=== PATIENT | female | born 1965 | race Caucasian/White ===

== ENCOUNTER 2023-11-26 15:56 | Inpatient (IN) | payer MEDICAID, SELFPAY ==
[2023-11-26] VITALS (20 sets, daily range): BP systolic 73–125; BP diastolic 56–91; PULSE 63–94; RESP 14–24; TEMP 35.9–36.2; O2SAT 93–100; BMI 23.4; BMI 23.7
--- NOTE | 2023-11-26 16:11 | EKG12_ITS ---
Test Reason : OD Blood Pressure : / mmHG Vent. Rate : 094 BPM Atrial Rate : 094 BPM P-R Int : 148 ms QRS Dur : 086 ms QT Int : 370 ms P-R-T Axes : 061 043 039 degrees QTc Int : 462 ms Normal sinus rhythm Normal ECG Confirmed by Tim Quinn ([id number]), videotape editor DIOGENES THOMAS ([id number]) on 11/28/2023 9:51:12 AM Referred By: Confirmed By:Tim Quinn
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
--- NOTE | 2023-11-26 16:15 | NURSING ---
NO OLD EKGS
--- NOTE | 2023-11-26 16:23 | ED.RN ---
Pt LOC deteriorating, SpO2 dropping to 87. MD to bedside, will intubate.
[2023-11-26 16:32] LABS: Absolute Lymphocyte Count 2.17 X10^3/uL (0.83-4.51); Absolute Neutrophil Count 1.9 X10^3/uL (2.0-7.7); Basophil# 0.08 X10^3/uL; Basophil% 1.7 % (0-1); Eosinophil# 0.11 X10^3/uL; Eosinophils% 2.3 % (0-5); Hematocrit 37.9 % (37-47); Hemoglobin 12.4 g/dL (12.0-15.0); Lymphocyte # 2.17 X10^3/ul (0.83-4.51); Lymphocyte % 45.8 % (19-41); Mean Corp Hgb Conc 32.7 g/dL (32-36); Mean Corpuscular Hgb 31.6 pg (27.0-32.0); Mean Corpuscular Volume 96.4 fL (81-99); Mean Platelet Vol. 9.2 fl (6.2-12.0); Monocyte# 0.45 X10^3/uL; Monocyte% 9.5 % (0-10); NRBC Flagged by Analyzer 0 % (0-5); Neutrophil # 1.92 X10^3/uL (2.7-7.7); Neutrophil % 40.5 % (47-70); Platelet Count 367 K/mm3 (150-450); RBC Distribution Width CV 13.3 % (11.6-14.6); RBC Distribution Width SD 47.6 fl (35.1-43.9); Red Blood Count 3.93 M/mm3 (4.2-5.4); White Blood Count 4.7 K/mm3 (4.4-11.0)
[2023-11-26] MEDS: Etomidate 20 MG/10 ML Vial 18 MG IV (16:34)
[2023-11-26] MEDS: Succinylcholine Chloride 200 MG/10 ML SYRINGE 60 MG IV (16:34)
[2023-11-26] MEDS: Dexmedetomidine 400 mcg in 0.9% NS 96 mL 7.7 MCG CONT INF (16:41)
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
--- NOTE | 2023-11-26 16:45 | RAD_ITS ---
INDICATION: overdose, ETT placement, OG tube placement EXAMINATION/TECHNIQUE: X-RAY - XR Chest 1 View COMPARISON: None. FINDINGS: The lungs are clear. The cardiomediastinal silhouette is unremarkable. NG tube is in place with tip at the GE junction. Endotracheal tube is in place with tip 1.6 cm above the torey. No pleural effusion or pneumothorax. No acute osseous abnormalities. RAD/Chest 1 View (Portable) IMPRESSION: NG tube is in place with tip at the GE junction. Recommend advancement by least 5 cm. Endotracheal tube is in place with tip 1.6 cm above the torey. Recommend retraction by at least 1 cm. No acute radiographic abnormalities. Electronically Signed: Aramis Farris MD at 17:31 EDT ,
[2023-11-26 17:02] LABS: Allen Test Positive; Base Excess 1 mmol/L (-2 to +2); Bicarbonate 26.5 mmol/L (22-26); Blood Gas Specimen Type ART; Mode AC; O2 Delivery Device Adult Vent; PEEP 5; PO2 234 mmHG (75-100); RR 14; SITE R Radial; SO2 100 % (95-99); Total Carbon Dioxide 28 mmol/L; pCO2 49.6 mmHg (35-45); pH 7.34 (7.35-7.45)
[2023-11-26 17:07] LABS: Acetaminophen (Tylenol) Level 32.2 ug/mL (10.0-30.0); Salicylate 3.1 mg/dL (2.8-20.0)
[2023-11-26 17:13] LABS: Anion Gap 7 (5-15); BUN 6 mg/dL (7-18); BUN/Creat Ratio 7.9 RATIO (10-20); Calcium,Total 8.3 mg/dL (8.5-10.1); Chloride 106 mmol/L (98-107); Creatinine, Serum 0.76 mg/dL (0.55-1.02); EST Glomerular Filtration Rate 83 mL/min (>60); Est Glom Filt Rate - Afr Amer 101 mL/min (>60); Estimated Creatinine Clearance 69.67 ml/min; Glucose 103 mg/dL (74-106); Potassium 3.2 mmol/L (3.5-5.1); Sodium Level 140 mmol/L (136-145)
[2023-11-26 17:13] LABS: Amphetamine Urine NEGATIVE (<1000 ng/mL); Barbiturate Urine NEGATIVE (< 200 ng/mL); Benzodiazepine Urine POSITIVE (< 200 ng/mL); Cocaine Urine NEGATIVE (< 300 ng/mL); Ecstacy Urine POSITIVE (< 500 ng/mL); Methadone Urine NEGATIVE (< 300 ng/mL); Opiates Urine POSITIVE (< 300 ng/mL); PCP Urine NEGATIVE (< 25 ng/mL); THC Urine POSITIVE (< 50 ng/mL); Vista UDS pH Range 5
[2023-11-26 17:25] LABS: AST(SGOT) 12 U/L (15-37); Alanine Aminotransfer ALT/SGPT 18 U/L (13-56); Albumin, Serum 3.4 g/dL (3.2-5.0); Alkaline Phosphatase 79 U/L (45-117); Bilirubin, Direct 0.08 mg/dL (0.00-0.30); Globulin 3.5 g/dL (2.2-4.2); Protein, Total 6.9 g/dL (6.4-8.2)
[2023-11-26] MEDS: 0.9% Normal Saline (1000mL) 1,000 ML 999 ML IV ×2 (17:29→17:31)
[2023-11-26 17:30] LABS: Lipase 181 U/L (13-75)
--- NOTE | 2023-11-26 17:51 | NURSING ---
ICU BARON DRUG OVERDOSE
[2023-11-26 17:53] LABS: Bacteria 0 SEEN /hpf (None Seen); Mucous, Urine 0 SEEN /hpf (<or=2+)
[2023-11-26 17:54] LABS: Color, Urine Yellow (Yellow); Glucose, Dipstick Normal (Normal); Ketone-Dipstick 5 mg/dl (Negative); Leukocyte Esterase-Dipstick 25 /ul (Negative); Nitrite-Dipstick Negative (Negative); Occult Blood-Urine 25 /ul (Negative); Protein-Dipstick 30 mg/dl (Negative); Specific Gravity, Urine 1.015 (1.002-1.030); Urine Bilirubin Dipstick Negative (Negative); Urine Clarity Clear (Clear); Urine Urobilinogen Normal (Normal)
[2023-11-26 18:01] LABS: Red Blood Cells-Urine 0-5 SEEN /hpf (0-5); Squamous Epithelial Cells - UA 0-5 SEEN /hpf (5-10); White Blood Cells 0-5 SEEN /hpf (0-5)
[2023-11-26] MEDS: fentaNYL 100 MCG/2 ML Ampul 50 MCG IV (18:01)
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
--- NOTE | 2023-11-26 19:38 | EKG12_ITS ---
Test Reason : Blood Pressure : / mmHG Vent. Rate : 065 BPM Atrial Rate : 065 BPM P-R Int : 170 ms QRS Dur : 096 ms QT Int : 460 ms P-R-T Axes : 066 073 063 degrees QTc Int : 478 ms Normal sinus rhythm Normal ECG When compared with ECG of 26-NOV-2023 16:45, MANUAL COMPARISON REQUIRED, DATA IS UNCONFIRMED Confirmed by SHERI MENON, IDALMIS ([id number]), editorial manager MARIA DEL ROSARIO RHODES ([id number]) on 12/05/2023 1:15:10 PM Referred By: TOD Confirmed By:ROSENDO WADE MD
[2023-11-26] MEDS: Morphine 2 MG/ML Syringe IV (19:48)
[2023-11-26] MEDS: Phenobarbital 32.4 MG Tablet 64.8 MG PO (19:49)
[2023-11-26] MEDS: 0.9% Saline Lock 10 ML Syringe IV (19:49)
[2023-11-26] MEDS: Lactated Ringers 1,000 ML 100 ML IV (19:50)
[2023-11-26] MEDS: LACTATED RINGERS 500 ML 999 ML IV (19:51)
--- NOTE | 2023-11-26 20:12 | RAD_ITS ---
INDICATION: Confirm ETT and NG tube repositioning EXAMINATION/TECHNIQUE: X-RAY - XR Chest 1 View COMPARISON: Chest x-ray November 26, 2023 at 4:41 PM FINDINGS: LINES/DEVICES: Unchanged, well-positioned endotracheal tube, roughly 3.5 cm and the torey. Interval advancement of enteric tube with the tube looped in the left upper quadrant. LUNGS: Symmetric normal lung volumes. No airspace opacity or abnormal interstitial pattern. No nodule or mass. No pleural effusion or pneumothorax. MEDIASTINUM AND CARDIOVASCULAR STRUCTURES: Normal size and contour of the cardiomediastinal silhouette. No evidence of pulmonary vascular congestion. BONES AND SOFT TISSUES: Incompletely visualized thoracolumbar posterior fusion hardware and T12 kyphoplasty. There is mild lateral curvature, convex right thoracic spine. RAD/Chest 1 View (Portable) IMPRESSION: 1. Enteric tube looped in the left upper quadrant. 2. Well-positioned endotracheal tube. 3. No acute cardiopulmonary disease. Electronically Signed: Tim Negrete DO at 21:11 EDT ,
[2023-11-26] MEDS: Pantoprazole Sodium 40 MG in 0.9% Normal Saline (100mL MB+) 100 ML 330 MG IV (20:16)
[2023-11-26] MEDS: Potassium Chloride 10mEq/100mL 10 MEQ/100 ML IV.SOLN. 100 MEQ IV BOLUS ×4 (20:48→23:35)
[2023-11-26 21:21] LABS: Troponin-I HS 4 pg/mL (3.0-54.0)
[2023-11-26 21:36] LABS: Lactic Acid 3.1 mmol/L (0.4-1.9)
[2023-11-26] MEDS: Dexmedetomidine 400 mcg in 0.9% NS 96 mL 18.6 MCG CONT INF (22:08)
[2023-11-26] MEDS: Chlorhexidine 15 ML PO (23:30)
[2023-11-27] VITALS (31 sets, daily range): BP systolic 82–163; BP diastolic 68–99; PULSE 61–114; RESP 14–28; TEMP 36.3–37.1; O2SAT 87–100; BMI 23.8
[2023-11-27] MEDS: Phenobarbital 32.4 MG Tablet 64.8 MG PO ×7 (01:00→22:52)
[2023-11-27 01:10] LABS: Reflex Lactate? Y
[2023-11-27] MEDS: Lactated Ringers 1,000 ML 100 ML IV ×2 (01:44→12:15)
[2023-11-27 02:54] LABS: Lactic Acid 1.4 mmol/L (0.4-1.9)
[2023-11-27] MEDS: Dexmedetomidine 400 mcg in 0.9% NS 96 mL 18.6 MCG CONT INF (03:05)
[2023-11-27] MEDS: CHLORHEXIDINE GLUC 2% CLOTH 1 EACH TOWELETTE TOPICAL (04:35)
[2023-11-27 05:09] LABS: Absolute Lymphocyte Count 1.92 X10^3/uL (0.83-4.51); Absolute Neutrophil Count 3.7 X10^3/uL (2.0-7.7); Basophil# 0.06 X10^3/uL; Eosinophil# 0.13 X10^3/uL; Eosinophils% 2.1 % (0-5); Hematocrit 34.1 % (37-47); Hemoglobin 11.5 g/dL (12.0-15.0); Lymphocyte # 1.92 X10^3/ul (0.83-4.51); Mean Corp Hgb Conc 33.7 g/dL (32-36); Mean Corpuscular Hgb 32.8 pg (27.0-32.0); Mean Corpuscular Volume 97.2 fL (81-99); Mean Platelet Vol. 9.4 fl (6.2-12.0); Monocyte% 6.5 % (0-10); NRBC Flagged by Analyzer 0 % (0-5); Neutrophil # 3.67 X10^3/uL (2.7-7.7); Neutrophil % 59.1 % (47-70); Platelet Count 271 K/mm3 (150-450); RBC Distribution Width CV 13.7 % (11.6-14.6); Red Blood Count 3.51 M/mm3 (4.2-5.4); White Blood Count 6.2 K/mm3 (4.4-11.0)
[2023-11-27 05:37] LABS: ALB/GLOB Ratio 0.9 RATIO (0.9-2.4); AST(SGOT) 7 U/L (15-37); Alanine Aminotransfer ALT/SGPT 16 U/L (13-56); Albumin, Serum 2.6 g/dL (3.2-5.0); Alkaline Phosphatase 69 U/L (45-117); Anion Gap 5 (5-15); BUN 6 mg/dL (7-18); BUN/Creat Ratio 9.2 RATIO (10-20); Bilirubin, Direct 0.14 mg/dL (0.00-0.30); Calcium,Total 7.7 mg/dL (8.5-10.1); Chloride 114 mmol/L (98-107); Creatinine, Serum 0.65 mg/dL (0.55-1.02); EST Glomerular Filtration Rate 100 mL/min (>60); Est Glom Filt Rate - Afr Amer 121 mL/min (>60); Estimated Creatinine Clearance 81.47 ml/min; Globulin 2.9 g/dL (2.2-4.2); Glucose 113 mg/dL (74-106); Magnesium 1.7 mg/dL (1.6-2.6); Phosphorus 2.1 mg/dL (2.5-4.9); Potassium 3.7 mmol/L (3.5-5.1); Protein, Total 5.5 g/dL (6.4-8.2); Sodium Level 142 mmol/L (136-145); Thyroid Stim Hormone (TSH) 3.37 uIU/mL (0.358-3.74)
[2023-11-27 05:44] LABS: Prothrombin Time (Protime)PT. 12.8 SECONDS (11.7-14.9)
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
[2023-11-27 07:27] LABS: Allen Test Positive; Base Excess -1 mmol/L (-2 to +2); Bicarbonate 23.4 mmol/L (22-26); Blood Gas Specimen Type ART; Mode AC; O2 Delivery Device Adult Vent; PEEP 5; PO2 84 mmHG (75-100); RR 14; SITE R Radial; SO2 97 % (95-99); Total Carbon Dioxide 24 mmol/L; pCO2 34.4 mmHg (35-45); pH 7.44 (7.35-7.45)
[2023-11-27] MEDS: Na Biphos/Potassium Phosphate PACKET 2 PACKET PO ×4 (07:57→20:34)
[2023-11-27] MEDS: Folic Acid 1 MG Tablet GT (08:01)
[2023-11-27] MEDS: Pantoprazole Sodium 40 MG in 0.9% Normal Saline (100mL MB+) 100 ML 330 MG IV (08:12)
--- NOTE | 2023-11-27 08:47 | PN.CC_ITS ---
Objective Data Objective Data Vital Signs: Vital Signs Last response Temperature 36.5 C L 11/27/23 05:00 Temperature Source Temporal 11/27/23 05:00 Pulse Rate 64 11/27/23 07:08 Pulse Strength Normal (2+) 11/26/23 21:08 Respiratory Rate 15 11/27/23 07:27 Respiratory Effort Mechanically Ventilated 11/27/23 06:00 Respiratory Depth Normal 11/27/23 06:00 Respiratory Pattern Normal 11/27/23 07:08 Blood Pressure 143/93 H 11/27/23 07:00 Blood Pressure Mean 109 11/27/23 07:00 Blood Pressure Source Monitor 11/27/23 07:00 Blood Pressure Position Semi-Fowlers 11/27/23 07:00 Blood Pressure Location Left Arm 11/27/23 07:00 Pulse Ox 95 11/27/23 07:08 Oxygen Delivery Method Mechanical Ventilator 11/27/23 07:08 Oxygen Flow Rate (L/min) 6 11/26/23 16:27 Fraction of Inspired Oxygen (FIO2) 35 11/27/23 07:08 I&O: I&O Last 24 Hours 11/26/23 11/26/23 11/27/23 11:59 23:59 11:59 Intake Total 3099.06 / 3117.66 1163.82 / 1163.82 Output Total 885 / 885 Balance 3099.06 / 2717.66 278.82 / 278.82 I&O: Total Stay 11/26/23 15:56 thru 11/27/23 08:00 Intake Total 4262.88 Output Total 885 Balance 3377.88 Current Meds Ordered / Administered: Current meds ordered / Administered Generic Name Dose Route Start Last Admin Trade Name Freq PRN Reason Stop Dose Admin Acetaminophen 650 mg 11/26/23 20:13 Acetaminophen 650 Mg/20 Ml Udc GT Q6H PRN PRN Pain 1-10 Or Fever >100.7 Chlorhexidine Gluconate 1 each 11/27/23 10:00 11/27/23 04:35 Chlorhexidine Gluc 2% Cloth 1 Each [place] TOPICAL 1 each DAILY BIBIANA Administration Chlorhexidine Gluconate 15 ml 11/27/23 10:00 11/26/23 23:30 Chlorhexidine 15 Ml PO 15 ml BID BIB[place]NA Administration Dicyclomine HCl 20 mg 11/26/23 20:13 Dicyclomine 10 Mg Capsule GT Q6H PRN PRN abdominal discomfort Folic Acid 1 mg 11/27/23 08:00 11/27/23 08:01 Folic Acid 1 Mg Tablet GT 1 mg BREAKFAST BIBIANA Administration Gabapentin 300 mg 11/26/23 20:13 Gabapentin 300 Mg Capsule GT Q8H PRN PRN moderate to severe anxiety Hydroxyzine Pamoate 50 mg 11/26/23 20:13 Hydroxyzine Alecia 25 Mg Capsule GT Q4H PRN PRN mild anxiety Dexmedetomidine HCl 400 mcg/ 100 mls @ 7.9 mls/hr 11/26/23 16:30 11/27/23 08:00 Sodium Chloride CONT INF 0 mcg/kg/hr .[id number] BIBIANA 0 mls/hr Titration Protocol 0.5 MCG/KG/HR Sodium Chloride 250 mls @ 15 mls/hr 11/26/23 18:56 IV .[id number] PRN Additional IVPB Infusion Sodium Chloride 250 mls @ 15 mls/hr 11/26/23 18:56 IV .[id number] PRN Saline Flush Lactated Ringer's 1,000 mls @ 100 mls/hr 11/26/23 19:45 11/27/23 01:44 IV 100 mls/hr .Q10H BIB[place]NA Administration Norepinephrine Bitartrate 8 mg 250 mls @ 9.375 mls/hr 11/26/23 19:40 11/27/23 01:45 / Sodium Chloride CONT INF Not Given .[id number] BIBIANA Protocol 5 MCG/MIN Ceftriaxone Sodium 1 gm in 50 mls @ 100 mls/hr 11/27/23 10:00 Rocephin IV Q24 BIB[place]NA Pantoprazole Sodium 80 mg/ 100 mls @ 10 mls/hr 11/27/23 08:05 Sodium Chloride CONT INF Q10H BIB[place]NA Loperamide HCl 2 mg 11/26/23 20:14 Loperamide 2 Mg Capsule GT Q4H PRN PRN Loose Stools Morphine Sulfate 2 - 4 mg 11/26/23 18:25 11/26/23 19:48 Morphine 2 Mg/Ml Syringe IV 2 mg Q3H PRN PRN Administration Pain Score 6-10 Morphine Sulfate 2 - 4 mg 11/26/23 19:01 Morphine 4 Mg/Ml Syringe IV Q3H PRN PRN Pain Score 6-10 Multivitamins/Minerals 1 tablet 11/28/23 08:00 Multivitamins,Ther W-Minerals Tablet PO BREAKFAST BIB[place]NA Ondansetron HCl 4 mg 11/26/23 18:25 Ondansetron 4 Mg/2 Ml Vial IV Q8H PRN PRN NAUSEA/VOMITING Ondansetron HCl 8 mg 11/26/23 20:14 Ondansetron 8 Mg Tablet GT Q8H PRN PRN NAUSEA Phenobarbital 97.2 mg 11/26/23 19:00 11/27/23 08:01 Phenobarbital 32.4 Mg Tablet PO 12/01/23 02:59 97.2 mg Q4H BIB[place]NA Administration Taper Potassium Phos/Sodium Phos 2 packet 11/27/23 10:00 11/27/23 07:57 Na Biphos/Potassium Phosphate Packet PO 11/27/23 22:01 2 packet 4X/DAY BIB[place]NA Administration Sodium Chloride 10 - 40 ml 11/26/23 18:56 11/26/23 19:49 0.9% Saline Lock 10 Ml Syringe IV 40 ml UD PRN Administration SALINE FLUSH Thiamine HCl 100 mg 11/27/23 08:00 Thiamine Hydrochloride 100 Mg Tablet GT DAILYCM BIB[place]NA Trazodone HCl 100 mg 11/26/23 18:25 Trazodone 100 Mg Tablet PO QHS PRN PRN INSOMNIA Lab / Micro Data 11/27/23 04:30 11/27/23 04:30 Labs: Laboratory Results - last 24 hr 11/26/23 16:10: WBC 4.7, RBC 3.93 L, Hgb 12.4, Hct 37.9, MCV 96.4, MCH 31.6, MCHC 32.7, RDW Std Deviation 47.6 H, RDW Coeff of Neil 13.3, Plt Count 367, MPV 9.2, Immature Gran % (Auto) 0.200, Neut % (Auto) 40.5 L, Lymph % (Auto) 45.8 H, [place] % (Auto) 9.5, Eos % (Auto) 2.3, Baso % (Auto) 1.7 H, Absolute Neuts (auto) 1.9 L, Absolute Lymphs (auto) 2.17, Nucleated RBC % 0, Sodium 140, Potassium 3.2 L, Chloride 106, Carbon Dioxide 27.0, Anion Gap 7, BUN 6 L, Creatinine 0.76, Est im Creat Clear Calc 69.67, Est GFR (MDRD) Af Amer 101, Est GFR (MDRD) Non-Af 83, BUN/Creatinine Ratio 7.9 L, Glucose 103, Calcium 8.3 L, Magnesium 2.0, Total Bilirubin 0.20, Direct Bilirubin 0.08, AST 12 L, ALT 18, Alkaline Phosphatase 79, Total Protein 6.9, Albumin 3.4, Globulin 3.5, Lipase 181 H, Salicylates 3.1, Acetaminophen 32.2 H, Ethyl Alcohol 198.0 11/26/23 16:42: Urine Opiates Screen POSITIVE H, Urine Methadone Screen NEGATIVE , Ur Barbiturates Screen NEGATIVE, Ur Phencyclidine Scrn NEGATIVE, Ur Amphetamines Screen NEGATIVE, MDMA (Ecstasy) Screen POSITIVE H, U Benzodiazepines Scrn POSITIVE H, Urine Cocaine Screen NEGATIVE, U Cannabinoids Screen POSITIVE H, Ur Drug Screen Comment 11/26/23 17:35: Urine Color Yellow, Urine Clarity Clear, Urine pH 6.0, Ur Specific [place] 1.015, Urine Protein 30 H, Urine Glucose (UA) Normal, Urine Ketones 5 H, Urine Occult Blood 25 H, Urine Nitrite Negative, Urine Bilirubin Negative, Urine Urobilinogen Normal, Ur Leukocyte Esterase 25 H, Urine RBC 0-5 SEEN, Urine WBC 0-5 SEEN, Ur Squamous Epith Cells 0-5 SEEN, Urine Bacteria 0 SEEN, Urine Mucus 0 SEEN 11/26/23 20:00: Lactic Acid 3.1 H* 11/26/23 20:50: Troponin I High Sens 4 11/27/23 01:55: Lactic Acid 1.4 11/27/23 04:30: WBC 6.2, RBC 3.51 L, Hgb 11.5 L, Hct 34.1 L, MCV 97.2, MCH 32.8 H, MCHC 33.7, RDW Std Deviation 49.0 H, RDW Coeff of Neil 13.7, Plt Count 271, MPV 9.4, Immature Gran % (Auto) 0.300, Neut % (Auto) 59.1, Lymph % (Auto) 31.0, [place] % (Auto) 6.5, Eos % (Auto) 2.1, Baso % (Auto) 1.0, Absolute Neuts (auto) 3.7, Absolute Lymphs (auto) 1.92, Nucleated RBC % 0, PT 12.8, INR 1.0, Sodium 142, Potassium 3.7, Chloride 114 H, Carbon Dioxide 23.0, Anion Gap 5, BUN 6 L, Creatinine 0.65, Estim Creat Clear Calc 81.47, Est GFR (MDRD) Af Amer 121, Est GFR (MDRD) Non-Af 100, BUN/Creatinine Ratio 9.2 L, Glucose 113 H, Calcium 7.7 L, Phosphorus 2.1 L, Magnesium 1.7, Total Bilirubin 0.40, Direct Bilirubin 0.14, AST 7 L, ALT 16, Alkaline Phosphatase 69, Total Protein 5.5 L, Albumin 2.6 L, Globulin 2.9, Albumin/Globulin Ratio 0.9, TSH 3.37 Micro: Microbiology 11/27/23 06:00 Nasal Secretion MRSA (PCR) - Final 11/27/23 08:05 Gastric Fluid/Contents Gastric Occult Blood - Final Occult Blood Positive ABG Data ABG results: ABG 11/26/23 11/27/23 16:57 07:23 Specimen Type ART ART Sample Site R Radial R Radial pH 7.34 L 7.44 Bicarbonate Actual 26.5 H 23.4 Total CO2 28 24 Base Excess 1 -1 O2 Saturation 100 H 97 O2 % 50.0 35.0 ABG pCO2 49.6 H 34.4 L ABG pO2 234 H 84 [place] Test Positive Positive Respiration Rate 14 14 O2 Delivery Device Adult Vent Adult Vent Vent Mode AC AC Tidal Volume 450.0 450.0 POC PEEP 5 5 Imaging Radiology Impression Chest X-Ray 11/26/23 16:45 IMPRESSION: NG tube is in place with tip at the GE junction. Recommend advancement by least 5 cm. Endotracheal tube is in place with tip 1.6 cm above the torey. Recommend retraction by at least 1 cm. No acute radiographic abnormalities. Electronically Signed: Aramis Farris MD at 17:31 EDT , Chest X-Ray 11/26/23 20:12 IMPRESSION: 1. Enteric tube looped in the left upper quadrant. 2. Well-positioned endotracheal tube. 3. No acute cardiopulmonary disease. Electronically Signed: Tim Negrete DO at 21:11 EDT , Assessment and Plan . Assessment and plan: Subjective: No acute events o/n. On SBT Physical Exam: Gen - NAD, well-developed, intubated HEENT - MMM. ETT in place Resp - CTAB. Mechanically ventilated CV - RRR. No m/g/r Abd - Soft, NT, ND Ext - No c/c/e. Skin - No rashes? Neuro - Drowsy but arousable, off sedation. Can follow some commands I have reviewed the pertinent vital sign, laboratory, and imaging data. ASSESSMENT: # Acute hypoxic respiratory failure - intubated 11/25 mainly for airway protection # Opiate overdose # Suicide attempt # Hypotension # Polysubstance abuse - EtOH elevated and UDS positive for MDMA, opiates, benzos, MJ # Coffee ground OG output - ?traumatic ETT/NGT placement PLAN: -Cont VC vent 450/14/5/30%. Follow ABG/CXR -Tolerating SBT so far this AM, hopeful for extubation -CIWA protocol. Started on phenobarbital taper per IM (would hold if excessive drowsiness) -Cont IVF -Obtain EKG, monitor telemetry -Thiamine/MVI -Follow CBC, monitor for worsening coffee grounds OP/bleeding. No melena thus far. PPI gtt. May need GI evaluation FEN/GI: NPO Proph DVT/GI: SCDs, PPI gtt Critical Care Time: 50 mins The entirety of this encounter was completed via telemedicine
[2023-11-27 09:56] LABS: Allen Test Positive; Base Excess -2 mmol/L (-2 to +2); Bicarbonate 23.6 mmol/L (22-26); Blood Gas Specimen Type ART; Mode PS; O2 Delivery Device Adult Vent; PEEP 5; PO2 91 mmHG (75-100); SITE R Radial; SO2 97 % (95-99); Total Carbon Dioxide 25 mmol/L; pCO2 39.7 mmHg (35-45); pH 7.38 (7.35-7.45)
[2023-11-27 10:24] LABS: Hepatitis B Surface Antibody Non-Reactive; Hepatitis B Surface Antigen Non-Reactive (Nonreactive); Hepatitis C Antibody Non-Reactive (Nonreactive)
[2023-11-27] MEDS: Ceftriaxone 1 GM/50 ML BAG IV (10:42)
[2023-11-27] MEDS: 0.9% Saline Lock 10 ML Syringe IV ×2 (10:42→15:28)
[2023-11-27] MEDS: Pantoprazole Sodium 80 MG in 0.9% Normal Saline (100mL Bag) 80 ML 10 MG CONT INF ×2 (10:44→18:56)
[2023-11-27 11:52] LABS: Syphilis Antibodies Non-reactive
[2023-11-27 11:56] LABS: HIV - WCH Preliminary Reactive (Nonreactive)
[2023-11-27 13:31] LABS: Hematocrit 35.2 % (37-47); Hemoglobin 11.7 g/dL (12.0-15.0); Mean Corp Hgb Conc 33.2 g/dL (32-36); Mean Corpuscular Hgb 32.6 pg (27.0-32.0); Mean Corpuscular Volume 98.1 fL (81-99); Mean Platelet Vol. 9.3 fl (6.2-12.0); Platelet Count 282 K/mm3 (150-450); RBC Distribution Width CV 13.7 % (11.6-14.6); RBC Distribution Width SD 49.8 fl (35.1-43.9); Red Blood Count 3.59 M/mm3 (4.2-5.4); White Blood Count 7.5 K/mm3 (4.4-11.0)
[2023-11-27] MEDS: Thiamine Hydrochloride 100 MG Tablet PO (16:21)
[2023-11-27] MEDS: Benzonatate 100 MG Capsule PO (18:57)
[2023-11-27 20:05] LABS: Hematocrit 36.5 % (37-47)
[2023-11-27] MEDS: Gabapentin 600 MG Tablet PO (20:33)
[2023-11-27] MEDS: buPROPion (XL) 300 MG TABLET.XL PO (20:33)
[2023-11-27] MEDS: DULoxetine Hcl 60 MG Capsule PO (20:33)
[2023-11-27] MEDS: DULoxetine Hcl 30 MG Capsule PO (20:33)
[2023-11-27] MEDS: hydrOXYzine PAM 25 MG Capsule 50 MG PO (20:34)
[2023-11-28] VITALS (14 sets, daily range): BP systolic 109–167; BP diastolic 60–103; PULSE 85–107; RESP 20–24; TEMP 36.3–36.8; O2SAT 90–99; BMI 23.1
[2023-11-28] MEDS: Phenobarbital 32.4 MG Tablet 64.8 MG PO ×5 (03:40→18:06)
[2023-11-28 03:57] LABS: Absolute Lymphocyte Count 2.25 X10^3/uL (0.83-4.51); Absolute Neutrophil Count 4.5 X10^3/uL (2.0-7.7); Basophil# 0.06 X10^3/uL; Basophil% 0.8 % (0-1); Eosinophil# 0.22 X10^3/uL; Eosinophils% 2.8 % (0-5); Hemoglobin 11.9 g/dL (12.0-15.0); Lymphocyte # 2.25 X10^3/ul (0.83-4.51); Lymphocyte % 28.5 % (19-41); Mean Corp Hgb Conc 32.2 g/dL (32-36); Mean Corpuscular Hgb 31.4 pg (27.0-32.0); Mean Corpuscular Volume 97.6 fL (81-99); Mean Platelet Vol. 9.4 fl (6.2-12.0); Monocyte# 0.84 X10^3/uL; Monocyte% 10.6 % (0-10); NRBC Flagged by Analyzer 0 % (0-5); Neutrophil # 4.49 X10^3/uL (2.7-7.7); Neutrophil % 56.9 % (47-70); Platelet Count 317 K/mm3 (150-450); RBC Distribution Width CV 13.6 % (11.6-14.6); RBC Distribution Width SD 48.5 fl (35.1-43.9); Red Blood Count 3.79 M/mm3 (4.2-5.4); White Blood Count 7.9 K/mm3 (4.4-11.0)
[2023-11-28 04:23] LABS: ALB/GLOB Ratio 0.9 RATIO (0.9-2.4); AST(SGOT) 12 U/L (15-37); Alanine Aminotransfer ALT/SGPT 14 U/L (13-56); Albumin, Serum 2.7 g/dL (3.2-5.0); Alkaline Phosphatase 83 U/L (45-117); Anion Gap 6 (5-15); BUN 6 mg/dL (7-18); BUN/Creat Ratio 7.2 RATIO (10-20); Chloride 108 mmol/L (98-107); Creatinine, Serum 0.84 mg/dL (0.55-1.02); EST Glomerular Filtration Rate 74 mL/min (>60); Est Glom Filt Rate - Afr Amer 90 mL/min (>60); Estimated Creatinine Clearance 63.04 ml/min; Globulin 3.1 g/dL (2.2-4.2); Glucose 87 mg/dL (74-106); Magnesium 1.8 mg/dL (1.6-2.6); Phosphorus 5.4 mg/dL (2.5-4.9); Potassium 3.4 mmol/L (3.5-5.1); Protein, Total 5.8 g/dL (6.4-8.2); Sodium Level 143 mmol/L (136-145)
[2023-11-28] MEDS: Pantoprazole Sodium 80 MG in 0.9% Normal Saline (100mL Bag) 80 ML 10 MG CONT INF (04:56)
[2023-11-28] MEDS: Gabapentin 600 MG Tablet PO ×2 (06:11→14:21)
--- NOTE | 2023-11-28 07:31 | PCM.PN.INT ---
Assessment & Plan Assessment/Plan (1) Drug overdose, intentional: PLAN: Plan RECOMMENDATIONS: 1. Continue phenobarbital taper. 2. Thiamine and folic acid as ordered. 3. Continue nicotine replacement therapy. 4. Encourage incentive spirometer use and mobilize patient as tolerated. 5. The patient is medically stable for transfer out of the intensive care unit. Will sign off at this time. Call with any additional questions. IMPRESSIONS: 1. Acute hypoxemic respiratory failure in the setting of intentional overdose The patient was apparently intubated for airway protection in the setting of her presenting intentional overdose. With supportive care, the patient was able to be successfully extubated and is maintaining appropriate oxygen saturations on room air. She has no further pulmonary sequelae. Recommend encouraging incentive spirometer use while in bed. 2. Intentional overdose/suicide attempt/history of polysubstance abuse Continue current supportive care including phenobarbital taper, thiamine and folic acid. The patient will require psychiatry evaluation. She is medically stable for transfer out of the intensive care unit from my perspective. This note was generated with [employer] dictation software. It may contain incorrect words, spelling, and punctuation that were not noted in checking the note before signing. Subjective Subjective The patient was seen and examined at the bedside this morning. Events from the last 24 hours have been reviewed. The patient is currently afebrile, hemodynamically stable and maintaining appropriate oxygen saturations on room air. No overnight issues were identified by the nursing staff. The patient has no specific complaints this morning. Objective Data Objective Data The patient's most recent lab work, culture data and imaging studies have all been personally reviewed. Vital Signs: Vital Signs Temp Pulse Resp BP Pulse Ox O2 Del Method O2 Flow Rate 97.8 F 88 21 H 167/85 H 95 Room Air 2 11/28/23 06:00 11/28/23 07:00 11/28/23 07:00 11/28/23 07:00 11/28/23 07:00 11/28/23 07:00 11/27/23 16:00 FiO2 35 11/27/23 09:00 Oxygen Flow Rate (L/min) 2 Oxygen Delivery Method Room Air Weight: 135 lb 5.821 oz Body Mass Index (BMI) 23.1 Intake & Output: Intake and Output for Last 24 Hours 11/26/23 11/27/23 11/28/23 23:59 23:59 23:59 Intake Total 3099.06 / 3117.66 3184.82 / 3234.82 899.33 / 899.33 Output Total 3175 / 3425 850 / 850 Balance 3099.06 / 2717.66 9.82 / -190.18 49.33 / 49.33 Lab / Micro Data Attestation: I reviewed the patient's lab results. 11/28/23 03:45 11/28/23 03:45 Labs: Laboratory Results - last 24 hr 11/27/23 07:55: Syphilis Total Ab Non-reactive, Hep Bs Antigen Non-Reactive, Hep Bs Antibody Non-Reactive, Hepatitis C Antibody Non-Reactive, HIV 1&2 Antibody Preliminary Reactive H 11/27/23 13:15: WBC 7.5, RBC 3.59 L, Hgb 11.7 L, Hct 35.2 L, MCV 98.1, MCH 32.6 H, MCHC 33.2, RDW Std Deviation 49.8 H, RDW Coeff of Neil 13.7, Plt Count 282, MPV 9.3 11/27/23 19:52: Hgb 12.0, Hct 36.5 L 11/28/23 03:45: WBC 7.9, RBC 3.79 L, Hgb 11.9 L, Hct 37.0, MCV 97.6, MCH 31.4, MCHC 32.2, RDW Std Deviation 48.5 H, RDW Coeff of Neil 13.6, Plt Count 317, MPV 9.4, Immature Gran % (Auto) 0.400, Neut % (Auto) 56.9, Lymph % (Auto) 28.5, [place] % (Auto) 10.6 H, Eos % (Auto) 2.8, Baso % (Auto) 0.8, Absolute Neuts (auto) 4.5, Absolute Lymphs (auto) 2.25, Nucleated RBC % 0, Sodium 143, Potassium 3.4 L, Chloride 108 H, Carbon Dioxide 29.0, Anion Gap 6, BUN 6 L, Creatinine 0.84, Estim Creat Clear Calc 63.04, Est GFR (MDRD) Af Amer 90, Est GFR (MDRD) Non-Af 74, BUN/Creatinine Ratio 7.2 L, Glucose 87, Calcium 8.0 L, Phosphorus 5.4 H, Magnesium 1.8, Total Bilirubin 0.40, AST 12 L, ALT 14, Alkaline Phosphatase 83, Total Protein 5.8 L, Albumin 2.7 L, Globulin 3.1, Albumin/Globulin Ratio 0.9 Micro: Microbiology 11/26/23 16:45 Sputum, Induced/Lukens Gram Stain - Final 11/26/23 16:45 Sputum, Induced/Lukens Respiratory Culture - Preliminary Appears to be normal respiratory bassam. Further studies to follow. 11/27/23 06:00 Nasal Secretion MRSA (PCR) - Final 11/27/23 08:05 Gastric Fluid/Contents Gastric Occult Blood - Final Occult Blood Positive ABG Data ABG results: ABG 11/27/23 09:51 Specimen Type ART Sample Site R Radial pH 7.38 Bicarbonate Actual 23.6 Total CO2 25 Base Excess -2 O2 Saturation 97 O2 % 30.0 ABG pCO2 39.7 ABG pO2 91 [place] Test Positive O2 Delivery Device Adult Vent Vent Mode PS POC PEEP 5 Physical Exam Const alert and no apparent distress Constitutional Narrative: Sitter is present at the bedside. General Appearance: cooperative HEENT normocephalic and head/scalp atraumatic Eyes PERRL and EOMs intact bilaterally Neck supple General: trachea midline Chest inspection of chest normal Resp normal respiratory effort Auscultation: Negative for rales, rhonchi or wheezes Cardio regular rate and regular rhythm GI normal to inspection, nondistended, normoactive bowel sounds Extremity no clubbing, cyanosis or edema Skin no rashes or lesions noted Neuro CN's II-XII intact bilaterally and no focal motor deficits Psych cooperative Charges/Coding Visit Charges Inpatient E&M: 17529 Subs Hosp L2
[2023-11-28] MEDS: Multivitamins,Ther W-Minerals Tablet 1 TABLET PO (09:52)
[2023-11-28] MEDS: Acyclovir 200 MG Capsule 400 MG PO (09:52)
[2023-11-28] MEDS: Thiamine Hydrochloride 100 MG Tablet PO (09:53)
[2023-11-28] MEDS: Folic Acid 1 MG Tablet PO (09:54)
[2023-11-28] MEDS: DULoxetine Hcl 30 MG Capsule PO (09:59)
[2023-11-28] MEDS: 0.9% Saline Lock 10 ML Syringe IV (09:59)
[2023-11-28] MEDS: hydrOXYzine PAM 25 MG Capsule 50 MG PO (09:59)
[2023-11-28] MEDS: Ceftriaxone 1 GM/50 ML BAG IV (09:59)
[2023-11-28] MEDS: buPROPion (XL) 300 MG TABLET.XL PO (10:15)
[2023-11-28] MEDS: DULoxetine Hcl 60 MG Capsule PO (10:16)
--- NOTE | 2023-11-28 10:37 | PN.HOSP_ITS ---
Reason for Visit Reason for Visit: Diagnoses Poisoning by unspecified drugs, medicaments and biological substances, intentio nal self-harm, initial encounter (11/26/23) Objective Data Objective Data Vital Signs: Vital Signs Temp Pulse Resp BP Pulse Ox O2 Del Method O2 Flow Rate 97.8 F 87 24 H 118/103 H 96 Room Air 2 11/28/23 06:00 11/28/23 09:00 11/28/23 09:00 11/28/23 09:00 11/28/23 09:00 11/28/23 09:00 11/27/23 16:00 FiO2 35 11/27/23 09:00 Oxygen Flow Rate (L/min) 2 Oxygen Delivery Method Room Air Weight: 135 lb 5.821 oz Body Mass Index (BMI) 23.1 Intake & Output: Intake and Output for Last 24 Hours 11/26/23 11/27/23 11/28/23 23:59 23:59 23:59 Intake Total 3099.06 / 3117.66 3184.82 / 3234.82 982.83 / 982.83 Output Total 3175 / 3425 850 / 850 Balance 3099.06 / 2717.66 9.82 / -190.18 132.83 / 132.83 Lab / Micro Data 11/28/23 03:45 11/28/23 03:45 Labs: Laboratory Results - last 24 hr 11/27/23 07:55: Syphilis Total Ab Non-reactive, HIV 1&2 Antibody Preliminary Reactive H 11/27/23 13:15: WBC 7.5, RBC 3.59 L, Hgb 11.7 L, Hct 35.2 L, MCV 98.1, MCH 32.6 H, MCHC 33.2, RDW Std Deviation 49.8 H, RDW Coeff of Neil 13.7, Plt Count 282, MPV 9.3 11/27/23 19:52: Hgb 12.0, Hct 36.5 L 11/28/23 03:45: WBC 7.9, RBC 3.79 L, Hgb 11.9 L, Hct 37.0, MCV 97.6, MCH 31.4, MCHC 32.2, RDW Std Deviation 48.5 H, RDW Coeff of Neil 13.6, Plt Count 317, MPV 9.4, Immature Gran % (Auto) 0.400, Neut % (Auto) 56.9, Lymph % (Auto) 28.5, [place] % (Auto) 10.6 H, Eos % (Auto) 2.8, Baso % (Auto) 0.8, Absolute Neuts (auto) 4.5, Absolute Lymphs (auto) 2.25, Nucleated RBC % 0, Sodium 143, Potassium 3.4 L, Chloride 108 H, Carbon Dioxide 29.0, Anion Gap 6, BUN 6 L, Creatinine 0.84, Estim Creat Clear Calc 63.04, Est GFR (MDRD) Af Amer 90, Est GFR (MDRD) Non-Af 74, BUN/Creatinine Ratio 7.2 L, Glucose 87, Calcium 8.0 L, Phosphorus 5.4 H, Magnesium 1.8, Total Bilirubin 0.40, AST 12 L, ALT 14, Alkaline Phosphatase 83, Total Protein 5.8 L, Albumin 2.7 L, Globulin 3.1, Albumin/Globulin Ratio 0.9 Micro: Microbiology 11/26/23 16:45 Sputum, Induced/Lukens Gram Stain - Final 11/26/23 16:45 Sputum, Induced/Lukens Respiratory Culture - Final 11/27/23 06:00 Nasal Secretion MRSA (PCR) - Final 11/27/23 08:05 Gastric Fluid/Contents Gastric Occult Blood - Final Occult Blood Positive Physical Exam Narrative Seen and examined. Patient was extubated on 11/26. She is awake and responding to questions appropriately. Mild sore throat. Had a small BM. Has sitter near the bedside General: Alert, Oriented x3, Cooperative HEENT: Atraumatic, PERRLA, EOMI, Normocephalic Oral: No Gingival or Mucosal Lesions/ Ulcerations Neck: Supple, No JVD, Negative Carotid Bruits Chest wall/Lungs: Air entry diminished in bilateral lung bases. No crepitation/rhonchi Cardiovascular: Regular rate, Regular Rhythm, Normal S1, Normal S2, No M/G/R Abdomen: Bowel Sounds Present, Soft, Non Tender, Non-Distended : No dysuria. No renal angle tenderness. No suprapubic tenderness. Extremities: No edema, Capillary Refill Less than 3 Seconds Skin: No rashes, No breakdown Musculoskeletal: No Tenderness to Palpation of Joints or Extremities Neurological: Cranial nerves II-XII grossly intact, DTR 2+/4. No acute focal neurological deficit. Psych/Mental Status: Sad, getting tearful easily. Anxiety and depression Assessment & Plan Assessment/Plan (1) Drug overdose, intentional: PLAN: Plan This is 50-year-old female was brought to the ED for concerns regarding drug overdose for suicidal intent/attempt. She had Percocet tablets and at the time of presentation was in altered mentation, confused and disoriented and required intubation for airway protection. #1. Acute hypoxic respiratory failure with inability to maintain protecting airway secondary to opiate/Xanax overdose with suicide attempt and associated hypotension: Admitted to the ICU, intubated for airway protection, on Precedex. Later on patient extubated yesterday on 11/26. Complain of mild hoarseness of voice. #2. Chronic mild normocytic anemia hemoglobin around 12 g. Currently fluctuating 11.5-9.9. No significant drop. No acute anemia #3. Electrolyte disturbances with hypocalcemia, hypophosphatemia, lower normal range of magnesium: Calcium 7.7, phosphorus 2.1, magnesium 1.7, 11/27: Electrolyte monitoring and replacement accordingly. K3.4. Magnesium normal. #4. Anxiety and depression, drug overdose with suicidal intent/history of polysubstance abuse: urine drug screen positive for MDMA, opiates, benzos, marijuana. customer business manager consulted. Crisis management to evaluate the patient. #5. Acute EtOH intoxication with impending withdrawal: At admission her alcohol level was 198. High likelihood to go to alcohol withdrawal. Patient is being admitted to [facility] floor. Patient on phenobarbital based order set along with other adjunctive medications gabapentin, Bentyl, Vistaril, clonidine, Klonopin as needed for alcohol withdrawal symptom control. Patient is on thiamine and folate acid. CIWA monitor. customer business manager consulted.. #6. Anxiety and depression/mood disorder with suicide attempt as noted: Patient is still tearful. #7. Tobacco Abuse: Encouraged cessation, #8. DVT prophylaxis: SCDs. Charges/Coding Visit Charges Inpatient E&M: 58408 Subs Hosp L2
--- NOTE | 2023-11-28 16:31 | DS.PCM_ITS ---
Providers Date of Admission: 11/26/23 Date of Discharge: 11/28/23 Primary Care Physician: Luz Primary Care Phys Consultations 11/26/23 18:30 Consult: Industrial [employer] Supervisor / Pulmonary Medicine Routine Consulting Provider: Intensivists/Pulmonary Med Reason for Consult: Drug overdose, mechanically ventilated EMERGENT Consult: No MD Notified: Yes Date Notified: 11/26/23 Time Notified: 18:30 Method of Notification: Text Reason For Visit: DRUG OVERDOSE Diagnosis Discharge Diagnosis (1) Drug overdose, intentional: Status: Acute Code(s): T50.902A - Poisoning by unspecified drugs, medicaments and biological substances, intentional self-harm, initial encounter Plan This is 50-year-old female was brought to the ED for concerns regarding drug overdose for suicidal intent/attempt. She had Percocet tablets and at the time of presentation was in altered mentation, confused and disoriented and required intubation for airway protection. #1. Acute hypoxic respiratory failure with inability to maintain protecting airway secondary to opiate/Xanax overdose with suicide attempt and associated hypotension: Admitted to the ICU, intubated for airway protection, on Precedex. Later on patient extubated yesterday on 11/26. 11/27: Patient is doing well. Mild hoarseness of voice #2. Chronic mild normocytic anemia hemoglobin around 12 g. Currently fluctuating 11.5-9.9. No significant drop. No acute anemia #3. Electrolyte disturbances with hypocalcemia, hypophosphatemia, lower normal range of magnesium: Calcium 7.7, phosphorus 2.1, magnesium 1.7, 11/27: Electrolyte monitoring and replacement accordingly. K3.4. Magnesium normal. #4. Anxiety and depression, drug overdose with suicidal intent/history of polysubstance abuse: urine drug screen positive for MDMA, opiates, benzos, marijuana. manager transportation consulted. Crisis management to evaluate the patient. 11/27: [place] paper signed and slipped. History of suicidal intent and attempt. Past history of suicidal attempt. Severe anxiety and depression. #5. Acute EtOH intoxication with impending withdrawal: At admission her alcohol level was 198. High likelihood to go to alcohol withdrawal. Patient is being admitted to [facility] floor. Patient on phenobarbital based order set along with other adjunctive medications gabapentin, Bentyl, Vistaril, clonidine, Klonopin as needed for alcohol withdrawal symptom control. Patient is on thiamine and folate acid. [facility] monitor. manager transportation consulted.. #6. Anxiety and depression/mood disorder with suicide attempt as noted: Patient is still tearful. #7. Tobacco Abuse: Encouraged cessation, #8. DVT prophylaxis: SCDs. Patient was pink slipped. Suzanne was signed. [facility], being transferred under the care of Dr. Esqueda. Discharged Medications at Discharge Home Medications alprazolam 1 mg tablet 1 mg PO BID anxiety 11/27/23 bupropion HCl 300 mg 24 hr tablet, extended release 300 mg PO DAILY depression 11/27/23 calcium carbonate 500 mg-vitamin D3 5 mcg (200 unit) tablet (Oysco 500/D) 1 tab PO DAILY bone health 11/27/23 diclofenac sodium 75 mg tablet,delayed release 75 mg PO BID arthritis 11/27/23 duloxetine 30 mg capsule,delayed release 30 mg PO DAILY depression 11/27/23 duloxetine 60 mg capsule,delayed release 60 mg PO DAILY depression 11/27/23 ergocalciferol (vitamin D2) 1,250 mcg (50,000 unit) capsule 1,250 mcg PO QWEEK general health 11/27/23 gabapentin 600 mg tablet 600 mg PO TID chronic pain 11/27/23 valacyclovir 500 mg tablet 500 mg PO DAILY viral infection 11/27/23 Weight / BMI Weight Weight: 135 lb 5.821 oz Body Mass Index (BMI) 23.1 ABG / Lab / Microbiology Data 11/28/23 03:45 11/28/23 03:45 Laboratory: Laboratory Results - last 24 hr 11/27/23 19:52: Hgb 12.0, Hct 36.5 L 11/28/23 03:45: WBC 7.9, RBC 3.79 L, Hgb 11.9 L, Hct 37.0, MCV 97.6, MCH 31.4, MCHC 32.2, RDW Std Deviation 48.5 H, RDW Coeff of Neil 13.6, Plt Count 317, MPV 9.4, Immature Gran % (Auto) 0.400, Neut % (Auto) 56.9, Lymph % (Auto) 28.5, [place] % (Auto) 10.6 H, Eos % (Auto) 2.8, Baso % (Auto) 0.8, Absolute Neuts (auto) 4.5, Absolute Lymphs (auto) 2.25, Nucleated RBC % 0, Sodium 143, Potassium 3.4 L, C hloride 108 H, Carbon Dioxide 29.0, Anion Gap 6, BUN 6 L, Creatinine 0.84, Estim Creat Clear Calc 63.04, Est GFR (MDRD) Af Amer 90, Est GFR (MDRD) Non-Af 74, BUN/Creatinine Ratio 7.2 L, Glucose 87, Calcium 8.0 L, Phosphorus 5.4 H, Magnesium 1.8, Total Bilirubin 0.40, AST 12 L, ALT 14, Alkaline Phosphatase 83, Total Protein 5.8 L, Albumin 2.7 L, Globulin 3.1, Albumin/Globulin Ratio 0.9 Microbiology: Microbiology 11/26/23 16:45 Sputum, Induced/Lukens Gram Stain - Final 11/26/23 16:45 Sputum, Induced/Lukens Respiratory Culture - Final 11/27/23 06:00 Nasal Secretion MRSA (PCR) - Final 11/27/23 08:05 Gastric Fluid/Contents Gastric Occult Blood - Final Occult Blood Positive Meaningful Use Info Meaningful Use Meaningful Use Diagnoses (Choose all that apply): None applicable Ischemic Stroke Statin Dosing Therapy Reference: STATIN DOSE THERAPY REFERENCE: * Patients > 75 years receive moderate or high dose statin therapy. * Patients 75 years or YOUNGER should receive HIGH intensity statin dose unless contraindicated. You will be required to document reason for non-treatment if statin daily dose does not meet guidelines. HIGH DOSE STATIN THERAPY DAILY Atorvastatin > than or = to 40 mg Rosuvastatin > than or = to 20 mg Amlodipine + Atorvastatin > than or = to 2.5/40 mg Ezetimibe + Simvastatin 10/80 mg Simvastatin 80mg Discharge Plan Admission Admit Date/Time: 11/26/23 17:37 Attending Provider: Amilcar Rasheed Primary Care Provider: Care Physician,No Primary Consulting Providers: Raoul Kathleen; Kathy Mcmanus Discharge Orders/Prescriptions Prescriptions: No Action alprazolam 1 mg tablet 1 mg PO BID bupropion HCl 300 mg tablet extended release 24 hr 300 mg PO DAILY calcium carbonate-vitamin D3 [Oysco 500/D] 500 mg-5 mcg (200 unit) tablet 1 tab PO DAILY diclofenac sodium 75 mg tablet,delayed release (DR/EC) 75 mg PO BID duloxetine 30 mg capsule,delayed release(DR/EC) 30 mg PO DAILY duloxetine 60 mg capsule,delayed release(DR/EC) 60 mg PO DAILY ergocalciferol (vitamin D2) 1,250 mcg (50,000 unit) capsule 1,250 mcg PO QWEEK gabapentin 600 mg tablet 600 mg PO TID valacyclovir 500 mg tablet 500 mg PO DAILY Referrals / Follow Up: Care Physician,No Primary [Primary Care Provider] - NOT,DEFINED [Non-Staff] - Disposition Discharge Orders: Discharge Patient (Routine); Ordered 11/28/23 Ordered By: Dr. Amilcar Rasheed Charges/Coding Visit Charges Inpatient E&M: 60049 Disch Hosp >30min
--- NOTE | 2023-11-28 17:21 | NURSING ---
Attempted to call report x3 to [facility] [phone]. No answer. Called admission line and spoke to Samanta. She said ok to send patient without report. They are expecting her. Notified Samanta that transport is to be here around 1900.
== END 2023-11-28 19:49 | DRG 817 ==
LOC: ED 17:05 → ICU 17:47
PROVIDERS: Family Medicine; Internal Medicine Pulmonary Disease; Admitting Provider Internal Medicine; Emergency Provider Emergency Medicine; Visit Provider Internal Medicine
DX: T40.2X2A Poisoning by other opioids, intentional self-harm, initial encounter (principal); E83.39 Other disorders of phosphorus metabolism; I95.9 Hypotension, unspecified; E87.8 Other disorders of electrolyte and fluid balance, not elsewhere classified; F19.19 Other psychoactive substance abuse with unspecified psychoactive substance-induced disorder; D64.9 Anemia, unspecified; F32.9 Major depressive disorder, single episode, unspecified; T42.4X2A Poisoning by benzodiazepines, intentional self-harm, initial encounter; F17.210 Nicotine dependence, cigarettes, uncomplicated; F41.8 Other specified anxiety disorders; E83.51 Hypocalcemia; F10.90 Alcohol use, unspecified, uncomplicated; F10.939 Alcohol use, unspecified with withdrawal, unspecified; Z79.899 Other long term (current) drug therapy
CPT/HCPCS: 31500; 31720; 36600; 51702; 71045; 80048; 80053; 80076; 80307; 80329; 81001; 82077; 82248; 82271; 82803; 83605; 83690; 83735; 84100; 84443; 84484; 85014; 85018; 85025; 85027; 85610; 86703; 86706; 86780; 86803; 87070; 87205; 87340; 87641; 93005; 94002; 94003; 94660; 94668; 94762; 97162; 97166; 97530; 97535; 99252; 99285; A4216; G0463; G0480

== ENCOUNTER 2024-09-02 07:41 | Inpatient (IN) | payer MEDICAID, SELFPAY ==
[2024-09-02] VITALS (26 sets, daily range): BP systolic 84–140; BP diastolic 61–90; PULSE 72–132; RESP 14–34; TEMP 35.6–37.4; O2SAT 90–100; BMI 22.9; BMI 23.6
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
[2024-09-02 08:17] LABS: Allen Test Positive; Base Excess 1 mmol/L (-2 to +2); Bicarbonate 26.2 mmol/L (22-26); Blood Gas Specimen Type ART; Mode Not entered; O2 Delivery Device Room Air; PO2 64 mmHG (75-100); SITE R Radial; SO2 92 % (95-99); Total Carbon Dioxide 28 mmol/L; pCO2 43.7 mmHg (35-45); pH 7.39 (7.35-7.45)
--- NOTE | 2024-09-02 08:20 | RAD_ITS ---
EXAM: XR CHEST, 1 VIEW CLINICAL INDICATION: Rhonchi and gurgling respiration TECHNIQUE: Frontal view of the chest. COMPARISON: 11/26/2023. FINDINGS: LUNGS AND PLEURAL SPACES: Prominent left peripheral interstitial lung markings and discoid atelectatic changes in the left midlung. No consolidation or edema. No pneumothorax. No effusion. HEART: Unremarkable. Cardiac silhouette not enlarged. MEDIASTINUM: Central airways and mediastinal contour are unremarkable. BONES/JOINTS: Pedicular screws and metallic rods in the lower thoracic spine down to the lumbar spine were present previously. No acute fracture. SOFT TISSUES: Unremarkable. TUBES, LINES AND DEVICES: Interval removal of ET tube and NG tube. RAD/Chest 1 View (Portable) IMPRESSION: Prominent interstitial lung markings in the left mid peripheral lung zone. Interstitial pneumonitis cannot be excluded. HRCT chest will help clarify if desired. Electronically Signed: Yosef Stoner MD at 11:57 EST ,
[2024-09-02 08:25] LABS: Bedside Glucose 79 mg/dL (74-106)
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
[2024-09-02 08:57] LABS: Absolute Lymphocyte Count 1.29 X10^3/uL (0.83-4.51); Absolute Neutrophil Count 7.6 X10^3/uL (2.0-7.7); Basophil# 0.08 X10^3/uL; Basophil% 0.8 % (0-1); Eosinophil# 0.05 X10^3/uL; Eosinophils% 0.5 % (0-5); Hematocrit 42.3 % (37-47); Hemoglobin 14.3 g/dL (12.0-15.0); Lymphocyte # 1.29 X10^3/ul (0.83-4.51); Lymphocyte % 13.6 % (19-41); Mean Corp Hgb Conc 33.8 g/dL (32-36); Mean Corpuscular Hgb 32.1 pg (27.0-32.0); Mean Corpuscular Volume 95.1 fL (81-99); Mean Platelet Vol. 9.2 fl (6.2-12.0); Monocyte# 0.48 X10^3/uL; NRBC Flagged by Analyzer 0 % (0-5); Neutrophil # 7.58 X10^3/uL (2.7-7.7); Neutrophil % 79.8 % (47-70); Platelet Count 350 K/mm3 (150-450); RBC Distribution Width CV 13.8 % (11.6-14.6); RBC Distribution Width SD 48.2 fl (35.1-43.9); Red Blood Count 4.45 M/mm3 (4.2-5.4); White Blood Count 9.5 K/mm3 (4.4-11.0)
[2024-09-02 09:06] LABS: ALB/GLOB Ratio 0.9 RATIO (0.9-2.4); AST(SGOT) 11 U/L (15-37); Alanine Aminotransfer ALT/SGPT 17 U/L (13-56); Albumin, Serum 3.6 g/dL (3.2-5.0); Alkaline Phosphatase 71 U/L (45-117); Anion Gap 6 (5-15); BUN 10 mg/dL (7-18); BUN/Creat Ratio 19.3 RATIO (10-20); Chloride 108 mmol/L (98-107); Creatinine, Serum 0.52 mg/dL (0.55-1.02); EST Glomerular Filtration Rate 129 mL/min (>60); Est Glom Filt Rate - Afr Amer 156 mL/min (>60); Globulin 3.8 g/dL (2.2-4.2); Glucose 93 mg/dL (74-106); Lipase 78 U/L (13-75); Potassium 3.9 mmol/L (3.5-5.1); Protein, Total 7.4 g/dL (6.4-8.2); Sodium Level 141 mmol/L (136-145)
[2024-09-02 09:11] LABS: Mucous, Urine 0 SEEN /hpf (<or=2+)
[2024-09-02 09:19] LABS: Lactic Acid 2.1 mmol/L (0.4-1.9)
[2024-09-02 09:21] LABS: Color, Urine Yellow (Yellow); Glucose, Dipstick Normal (Normal); Ketone-Dipstick Negative (Negative); Leukocyte Esterase-Dipstick Negative /ul (Negative); Nitrite-Dipstick Negative (Negative); Occult Blood-Urine 10 /ul (Negative); Protein-Dipstick Negative (Negative); Urine Bilirubin Dipstick Negative (Negative); Urine Clarity Sl. Cloudy (Clear); Urine Urobilinogen Normal (Normal)
[2024-09-02 09:27] LABS: International Normalized Ratio 0.9; Partial Thromboplast Time 26.4 Seconds (24.1-36.2); Prothrombin Time (Protime)PT. 12.1 SECONDS (11.7-14.9)
[2024-09-02] MEDS: Ampicillin/Sulbactam 3 GM in 0.9% Normal Saline (100mL MB+) 100 ML IV ×2 (09:29→18:08)
[2024-09-02 09:34] LABS: Red Blood Cells-Urine 0-5 SEEN /hpf (0-5); Squamous Epithelial Cells - UA 0-5 SEEN /hpf (5-10); White Blood Cells 0-5 SEEN /hpf (0-5)
[2024-09-02 09:35] LABS: Bacteria 1+ /hpf (None Seen)
[2024-09-02 09:38] LABS: Amphetamine Urine NEGATIVE (<1000 ng/mL); Barbiturate Urine VISTA NEGATIVE (< 200 ng/mL); Benzodiazepine Urine VISTA POSITIVE (< 200 ng/mL); Cocaine Urine VISTA NEGATIVE (< 300 ng/mL); Ecstacy Urine VISTA NEGATIVE (< 500 ng/mL); Methadone Urine VISTA NEGATIVE (< 300 ng/mL); PCP Urine VISTA NEGATIVE (< 25 ng/mL); THC Urine VISTA POSITIVE (< 50 ng/mL); Vista UDS pH Range 7
[2024-09-02 09:40] LABS: CPK Total, Creatine Kinase 105 U/L (26-192); Triglycerides 249 mg/dL
[2024-09-02] MEDS: 0.9% Normal Saline (1000mL) 1,000 ML 999 ML IV ×2 (10:52→10:53)
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
[2024-09-02 12:45] LABS: Reflex Lactate? Y
[2024-09-02 13:00] LABS: Lactic Acid 0.6 mmol/L (0.4-1.9)
--- NOTE | 2024-09-02 13:21 | EKG12_ITS ---
Test Reason : TACHYCARDIA Blood Pressure : */* mmHG Vent. Rate : 118 BPM Atrial Rate : 118 BPM P-R Int : 142 ms QRS Dur : 80 ms QT Int : 330 ms P-R-T Axes : 45 76 60 degrees QTcB Int : 462 ms Sinus tachycardia Septal infarct , age undetermined Abnormal ECG No previous ECGs available Confirmed by SHERI MENON, IDALMIS ([id number]), development editor DIOGENES THOMAS ([id number]) on 09/03/2024 2:01:57 PM Referred By: LUCIANO Confirmed By: IDALMIS WADE MD
--- NOTE | 2024-09-02 13:50 | NURSING ---
Dr Burnham notified that patient is becoming increasingly tachycardic, respirations are mor shallow and labored and patient's O2 requirements went from 2L nasal cannula to now on 100% NRB. Patient 93% Spo2 on 100% NRB. Dr Burnham came to bedside to evaluate. Gave Narcan x1 without response, romazicon x1 with slight increase in activity and respiratory rate was increasing to 40's. Patient remained minimally responsive to noxious stimuli. Patient sedated with Etomidate and Succs, Dr Burnham intubated patient at 1417 with #7.5 ETT, 24 cm at the lip. Patient tolerated well and intubation proceeded without complications.
[2024-09-02] MEDS: Naloxone 0.4 MG/ML Syringe IV (13:58)
[2024-09-02] MEDS: Flumazenil 0.5 MG/5 ML Vial 0.2 MG IV (14:05)
[2024-09-02] MEDS: Etomidate 20 MG/10 ML Vial IV (14:15)
[2024-09-02] MEDS: Succinylcholine Chloride 200 MG/10 ML SYRINGE 40 MG IV (14:15)
--- NOTE | 2024-09-02 14:26 | PCM.HOSP.N ---
Hospitalist Note Procedure note: Endotracheal intubation Indication is for respiratory failure and inability to protect airway Procedure: Patient was intubated via rapid sequence intubation with 40 mg of succinylcholine and 20 mg of etomidate. Patient was preoxygenated. With glide scope, the vocal cords were visualized and endotracheal tube was visualized and advanced going through the vocal cords and was 23 cm at the lips. Patient had bilateral breath sounds. Good color change with capnography. Follow-up chest x-ray: shows ETT above the torey. Procedures Hospitalists Procedures: [id number] Insert Emergency Airway
[2024-09-02] MEDS: fentaNYL drip 100 ML 5 MCG CONT INF (14:30)
[2024-09-02] MEDS: Propofol 10MG/Ml 1,000 MG/100 ML Bottle 4 MG CONT INF (14:30)
[2024-09-02] MEDS: Ipratropium/Albuterol Sulfate 3 ML AMPUL.NEB INHALATION ×3 (14:45→23:12)
--- NOTE | 2024-09-02 14:47 | RAD_ITS ---
STUDY: XR Chest 1 View 09/02/2024 2:44 PM REASON FOR EXAM: Female, 58 years old. To confirm ET placement -- Call wet read to MD COMPARISON: Study done earlier today. TECHNIQUE: XR Chest 1 View FINDINGS: There is no demonstrated pleural abnormality. ET tube and NG tube in place. These are in good position. Thoracic and lumbar spinal fixation hardware. Kyphoplasty changes. Normal heart size. Normal mediastinum. Normal demetrius. Prominent appearing increased interstitial lung markings. Prominent visualized pulmonary arteries. There is atherosclerotic calcification of the aortic arch with tortuosity. There are diffuse degenerative changes of the visualized thoracic spine. There is degenerative osteoarthritis of the bilateral shoulders. There are no acute findings of the upper abdomen. RAD/Chest 1 View (Portable) IMPRESSION: There has been no change in the appearance of the chest since the prior study. Electronically Signed: Jas Loera MD at 15:33 EST ,
[2024-09-02] MEDS: 0.9% Normal Saline (1000mL) 1,000 ML 150 ML IV ×2 (15:01→23:38)
[2024-09-02 15:49] LABS: Base Excess 0 mmol/L (-2 to +2); Bicarbonate 26.1 mmol/L (22-26); Blood Gas Specimen Type ART; Mode AC; O2 Delivery Device Adult Vent; PEEP 5; PO2 99 mmHG (75-100); RR 14; SITE L Brach; SO2 97 % (95-99); Total Carbon Dioxide 28 mmol/L; pCO2 49.1 mmHg (35-45); pH 7.33 (7.35-7.45)
[2024-09-02 16:44] LABS: Troponin-I HS 12 pg/mL (3.0-54.0)
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
[2024-09-02] MEDS: Chlorhexidine 15 ML PO (20:29)
[2024-09-02] MEDS: Piperacil/Tazobactam 3.375 GM in 0.9% Normal Saline (50mL MB+) 50 ML IV (21:05)
[2024-09-02] MEDS: 0.9% Normal Saline (100mL Bag) 100 ML 15 ML IV (21:17)
[2024-09-02 21:56] LABS: CPK Total, Creatine Kinase 281 U/L (26-192); Triglycerides 99 mg/dL
[2024-09-02] MEDS: fentaNYL drip 100 ML 12.5 MCG CONT INF (22:17)
[2024-09-03] VITALS (40 sets, daily range): BP systolic 85–146; BP diastolic 58–86; PULSE 69–124; RESP 14–28; TEMP 37–37.7; O2SAT 95–100; BMI 22.8
[2024-09-03] MEDS: CHLORHEXIDINE GLUC 2% CLOTH 1 EACH TOWELETTE TOPICAL (02:18)
[2024-09-03] MEDS: Ipratropium/Albuterol Sulfate 3 ML AMPUL.NEB INHALATION ×6 (02:22→23:28)
[2024-09-03] MEDS: Propofol 10MG/Ml 1,000 MG/100 ML Bottle 6 MG CONT INF ×2 (03:20→17:54)
[2024-09-03] MEDS: Piperacil/Tazobactam 3.375 GM in 0.9% Normal Saline (50mL MB+) 50 ML IV ×3 (05:08→21:12)
[2024-09-03 05:28] LABS: Absolute Lymphocyte Count 1.21 X10^3/uL (0.83-4.51); Absolute Neutrophil Count 5.2 X10^3/uL (2.0-7.7); Basophil# 0.04 X10^3/uL; Basophil% 0.6 % (0-1); Eosinophil# 0.08 X10^3/uL; Eosinophils% 1.1 % (0-5); Hematocrit 25.1 % (37-47); Hemoglobin 8.3 g/dL (12.0-15.0); Lymphocyte # 1.21 X10^3/ul (0.83-4.51); Mean Corp Hgb Conc 33.1 g/dL (32-36); Mean Corpuscular Hgb 32.4 pg (27.0-32.0); Monocyte# 0.51 X10^3/uL; Monocyte% 7.2 % (0-10); NRBC Flagged by Analyzer 0 % (0-5); Neutrophil # 5.24 X10^3/uL (2.7-7.7); Neutrophil % 73.8 % (47-70); Platelet Count 162 K/mm3 (150-450); RBC Distribution Width CV 14.4 % (11.6-14.6); RBC Distribution Width SD 51.3 fl (35.1-43.9); Red Blood Count 2.56 M/mm3 (4.2-5.4); White Blood Count 7.1 K/mm3 (4.4-11.0)
[2024-09-03 06:50] LABS: Anion Gap 4 (5-15); BUN 9 mg/dL (7-18); BUN/Creat Ratio 11.7 RATIO (10-20); Calcium,Total 7.9 mg/dL (8.5-10.1); Chloride 116 mmol/L (98-107); Creatinine, Serum 0.77 mg/dL (0.55-1.02); EST Glomerular Filtration Rate 82 mL/min (>60); Est Glom Filt Rate - Afr Amer 99 mL/min (>60); Estimated Creatinine Clearance 74.55 ml/min; Glucose 95 mg/dL (74-106); Potassium 3.3 mmol/L (3.5-5.1); Sodium Level 144 mmol/L (136-145)
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
--- NOTE | 2024-09-03 07:57 | PCM.PN.INT ---
Assessment & Plan Assessment/Plan (1) Sepsis: (2) Toxic encephalopathy: (3) Aspiration pneumonia: (4) Acute hypoxemic respiratory failure: PLAN: Plan RECOMMENDATIONS: 1. Continue to hold all sedation. 2. Continue assist-control mode of mechanical ventilation. 3. Okay to initiate tube feeding today from my perspective. 4. Agree with MRI and EEG. 5. Continue empiric antimicrobials. 6. Check TSH and ammonia. 7. Ongoing electrolyte repletion as needed. 8. Continue appropriate ICU prophylaxis. IMPRESSIONS: 1. Acute hypoxemic respiratory failure Clinical concern for underlying aspiration pneumonia. Goal ventilator requirements are minimal, the patient's underlying neurologic status would preclude any attempts at weaning from invasive mechanical ventilatory support. Therefore, we will plan to continue assist-control mode of mechanical ventilation for now. Continue to wean FiO2 as tolerated. Okay to initiate tube feeding today. The patient will be maintained on antimicrobials as ordered. Continue scheduled bronchodilators, given history of tobacco dependency. 2. Sepsis secondary to suspected aspiration pneumonia The patient did receive supplemental IV fluid hydration and remains hemodynamically stable. Cultures are currently pending. Plan to continue empiric antibiotics. 3. Toxic/metabolic encephalopathy Unclear etiology. The patient has been off of all forms of sedation for several hours this morning. Despite this, she remains nonresponsive. Therefore, TSH and ammonia will be checked. In addition, I agree with obtaining MRI brain and EEG, given pinpoint pupils on exam. Consider neurology evaluation, pending clinical course. 4. History of chronic pain syndrome/chronic tobacco dependency/anxiety/depression Complicates care, management, recovery and prognosis. Continue to hold home medications for now. Continue supportive care as noted above. Okay to initiate tube feeding today from my perspective. TIME: 35 minutes of critical care time, independent of procedures, was spent addressing the patient's acute hypoxemic respiratory failure, sepsis, toxic/metabolic encephalopathy, review of all data and collaboration with the care team. Subjective Subjective The patient was seen and examined at the bedside this morning. Events from the last 24 hours have been reviewed. The patient currently has a low-grade fever, but remains otherwise hemodynamically stable on assist-control mode mechanical ventilation with an FiO2 requirement of 30% and PEEP of 5. The patient has been off of all forms of sedation for the last several hours, but remains largely comatose. White blood cell count is normal. Hemoglobin initially was reported this morning to be 8.3 g/dL. However, on recheck, the hemoglobin was noted to be 11.2 g/dL. ABG was notable for a pH of 7.37 with a pCO2 of 41 and pO2 of 60. Chemistry profile was notable for a potassium of 3.3 and normal creatinine. Ammonia and TSH are currently pending. Objective Data Objective Data The patient's most recent lab work, culture data and imaging studies have all been personally reviewed. COVID, influenza and RSV PCR's were negative. Strep and urine Legionella antigens were negative. Blood and sputum cultures are pending. Vital Signs: Vital Signs Temp Pulse Resp BP Pulse Ox O2 Del Method O2 Flow Rate 99.2 F H 80 14 121/69 H 98 Mechanical Ventilator 4 09/03/24 06:00 09/03/24 07:16 09/03/24 07:16 09/03/24 07:00 09/03/24 07:16 09/03/24 07:00 09/02/24 14:00 FiO2 30 09/03/24 07:16 Oxygen Flow Rate (L/min) 4 Oxygen Delivery Method Mechanical Ventilator Weight: 141 lb 12.116 oz Body Mass Index (BMI) 22.8 Intake & Output: Intake and Output for Last 24 Hours 09/01/24 09/02/24 09/03/24 23:59 23:59 23:59 Intake Total 2496.42 / 2509.42 1305.13 / 1305.13 Output Total 1200 / 1200 200 / 200 Balance 1296.42 / 1309.42 1105.13 / 1105.13 Lab / Micro Data Attestation: I reviewed the patient's lab results. 09/03/24 08:55 09/03/24 06:00 Labs: Laboratory Results - last 24 hr 09/02/24 08:06: POC Glucose 79 09/02/24 08:36: WBC 9.5, RBC 4.45, Hgb 14.3, Hct 42.3, MCV 95.1, MCH 32.1 H, MCHC 33.8, RDW Std Deviation 48.2 H, RDW Coeff of Neil 13.8, Plt Count 350, MPV 9.2, Immature Gran % (Auto) 0.300, Neut % (Auto) 79.8 H, Lymph % (Auto) 13.6 L, [place] % (Auto) 5.0, Eos % (Auto) 0.5, Baso % (Auto) 0.8, Absolute Neuts (auto) 7.6, Absolute Lymphs (auto) 1.29, Nucleated RBC % 0, PT 12.1, INR 0.9, APTT 26.4, Sodium 141, Potassium 3.9, Chloride 108 H, Carbon Dioxide 27.0, Anion Gap 6, BUN 10, Creatinine 0.52 L, Estim Creat Clear Calc 110.40, Est GFR (MDRD) Af Amer 156, Est GFR (MDRD) Non-Af 129, BUN/Creatinine Ratio 19.3, Glucose 93, Lactic Acid 2.1 H*, Calcium 9.0, Total Bilirubin 0.10 L, AST 11 L, ALT 17, Alkaline Phosphatase 71, Total Creatine Kinase 105, Total Protein 7.4, Albumin 3.6, Globulin 3.8, Albumin/Globulin Ratio 0.9, Triglycerides 249 H, Lipase 78 H, Ethyl Alcohol 18.0 09/02/24 09:06: Urine Color Yellow, Urine Clarity Sl. Cloudy, Urine pH 7.0, Ur Specific [place] 1.010, Urine Protein Negative, Urine Glucose (UA) Normal, Urine Ketones Negative, Urine Occult Blood 10 H, Urine Nitrite Negative, Urine Bilirubin Negative, Urine Urobilinogen Normal, Ur Leukocyte Esterase Negative, Urine RBC 0-5 SEEN, Urine WBC 0-5 SEEN, Ur Squamous Epith Cells 0-5 SEEN, Urine Bacteria 1+, Urine Mucus 0 SEEN, Urine Opiates Screen NEGATIVE, Urine Methadone Screen NEGATIVE, Ur Barbiturates Screen NEGATIVE, Ur Phencyclidine Scrn NEGATIVE, Ur Amphetamines Screen NEGATIVE, MDMA (Ecstasy) Screen NEGATIVE, U Benzodiazepines Scrn POSITIVE H, Urine Cocaine Screen NEGATIVE, U Cannabinoids Screen POSITIVE H, Ur Drug Screen Comment 09/02/24 12:15: Lactic Acid 0.6 09/02/24 15:05: Total Creatine Kinase 281 H, Troponin I High Sens 12, Triglycerides 99 09/03/24 05:20: WBC 7.1, RBC 2.56 L, Hgb 8.3 L, Hct 25.1 L, MCV 98.0, MCH 32.4 H, MCHC 33.1, RDW Std Deviation 51.3 H, RDW Coeff of Neil 14.4, Plt Count 162, MPV 9.0, Immature Gran % (Auto) 0.300, Neut % (Auto) 73.8 H, Lymph % (Auto) 17.0 L, [place] % (Auto) 7.2, Eos % (Auto) 1.1, Baso % (Auto) 0.6, Absolute Neuts (auto) 5.2, Absolute Lymphs (auto) 1.21, Nucleated RBC % 0, Sodium Cancelled, Potassium Cancelled, Chloride Cancelled, Carbon Dioxide Cancelled, Anion Gap Cancelled, BUN Cancelled, Creatinine Cancelled, Estim Creat Clear Calc Cancelled, Est GFR (MDRD) Af Amer Cancelled, Est GFR (MDRD) Non-Af Cancelled, BUN/Creatinine Ratio Cancelled, Glucose Cancelled, Calcium Cancelled 09/03/24 06:00: Sodium 144, Potassium 3.3 L, Chloride 116 H, Carbon Dioxide 24.0, Anion Gap 4 L, BUN 9, Creatinine 0.77, Estim Creat Clear Calc 74.55, Est GFR (MDRD) Af Amer 99, Est GFR (MDRD) Non-Af 82, BUN/Creatinine Ratio 11.7, Glucose 95, Calcium 7.9 L Micro: Microbiology 09/02/24 09:06 Urine Catheter - Catheter Legionella Antigen - Final 09/02/24 09:06 Urine Catheter - Catheter Streptococcus pneumoniae Antigen (M - Final 09/02/24 08:55 Mucosa - Nose SARS-CoV-2, Influenza & RSV (PCR) - Final ABG Data ABG results: ABG 09/02/24 09/02/24 08:12 15:45 Specimen Type ART ART Sample Site R Radial L Brach pH 7.39 7.33 L Bicarbonate Actual 26.2 H 26.1 H Total CO2 28 28 Base Excess 1 0 O2 Saturation 92 L 97 O2 % 21.0 50.0 ABG pCO2 43.7 49.1 H ABG pO2 64 L 99 [place] Test Positive Respiration Rate 14 O2 Delivery Device Room Air Adult Vent Vent Mode Not entered AC Tidal Volume 450.0 POC PEEP 5 Radiography Diagnostic Testing: Radiology Impression Brain CT 09/02/24 07:54 IMPRESSION: Old fracture deformity of the right nasal bone and the frontal process of the right maxilla otherwise negative noncontrast CT head scan. Electronically Signed: Yosef Stoner MD at 9:13 EST , Chest X-Ray 09/02/24 08:20 IMPRESSION: Prominent interstitial lung markings in the left mid peripheral lung zone. Interstitial pneumonitis cannot be excluded. HRCT chest will help clarify if desired. Electronically Signed: Yosef Stoner MD at 11:57 EST , Chest X-Ray 09/02/24 14:47 IMPRESSION: There has been no change in the appearance of the chest since the prior study. Electronically Signed: Jas Loera MD at 15:33 EST , Rhythm Strip Rhythm Strip: Sinus Rhythm Rate: 88 Ectopy: None Physical Exam Const Constitutional Narrative: Remains intubated and mechanically ventilated. No ventilator dyssynchrony noted. HEENT normocephalic and head/scalp atraumatic Mouth: endotracheal tube in place and OG tube in place Eyes conjunctivae normal Eyes Narrative: Pinpoint pupils bilaterally. Neck supple General: trachea midline Chest inspection of chest normal Resp normal respiratory effort Auscultation: Negative for rales, rhonchi or wheezes Cardio regular rate and regular rhythm GI normal to inspection, nondistended, normoactive bowel sounds Extremity no clubbing, cyanosis or edema Skin no rashes or lesions noted Neuro Neuro Narrative: The patient is not currently responsive, despite being off of sedation. Charges/Coding Procedures Hospitalists Procedures: 05109 Critical Care 1st Hr
--- NOTE | 2024-09-03 08:25 | MRI_ITS ---
STUDY: MRI BRAIN WITH AND WITHOUT CONTRAST REASON FOR EXAM: Female, 58 years old. encephalopathy for unknown reason TECHNIQUE: Standardized multiplanar fat and water weighted pulse sequences were obtained. clariscan 13ml iv was administered for the contrast portion of the examination. COMPARISON: Head CT dated September 02, 2024 FINDINGS: There is mild cerebral atrophy with widening of the extra-axial spaces and ventricular dilatation. There are a limited number of small white matter hyperintensities, distributed throughout the deep white matter tracts of the cerebral hemispheres, consistent with mild chronic white matter ischemic changes. There are no demyelinating plagues of the supratentorial brain, brainstem or cerebellum. There are no findings suspicious for multiple sclerosis (MS). Normal bilateral frontal poles, and orbital frontal and gyrus recti of the frontal lobes. Normal bilateral temporal tips of the temporal lobes. There are no white matter shear injuries (diffuse axonal injuries). There are no parenchymal hemorrhages or hematomas. There are no findings to suggest prior closed head parenchymal injury of the brain. Normal T2* images of the brain without demonstrated susceptibility artifact. There is no demonstrated hemosiderin stain. No hydrocephalus or midline shift is present. There is no evidence of hypoxic ischemic encephalopathy or acute metabolic toxic encephalopathy by MR criteria. Normal bilateral basal ganglia. Normal thalami. There is no extra-axial fluid accumulation. Normal flow voids within the major intracranial circulation suggesting patency by spin echo criteria. Normal venous enhancement. There is no enhancing intra-axial or extra-axial abnormality. Normal sella turcica, pituitary gland, infundibular stalk, optic chiasm and hypothalamus. Normal tectal plate and pineal gland. Normal midbrain, farrah and medulla. Normal cerebellum. Normal basal cisterns. Normal bilateral temporal bones. Normal bilateral internal auditory canals. No demonstrated orbital abnormality, within the constraints of a routine brain study. Normal visualized paranasal sinuses. Normal calvarium and skull base. Normal visualized soft tissue structures. Normal visualized upper cervical spine. MRI/Brain W/WO Contrast IMPRESSION: 1. Involutional and mild chronic ischemic changes of the brain, as described above. 2. No acute infarct or intracranial hemorrhage 3. No hydrocephalus or midline shift is present. There is no evidence of hypoxic ischemic encephalopathy or acute metabolic toxic encephalopathy by MR criteria. Electronically Signed: Stewart Riddle MD at 15:23 EST ,
[2024-09-03 08:35] LABS: Base Excess -2 mmol/L (-2 to +2); Bicarbonate 23.6 mmol/L (22-26); Blood Gas Specimen Type ART; Mode AC; O2 Delivery Device Adult Vent; PEEP 5; PO2 60 mmHG (75-100); RR 14; SITE R Brach; SO2 90 % (95-99); Total Carbon Dioxide 25 mmol/L; pCO2 41.3 mmHg (35-45); pH 7.37 (7.35-7.45)
[2024-09-03 09:24] LABS: Platelet Count 228 K/mm3 (150-450); RET-HE 34.9 pg (30-35); Reticulocyte Count 1.03 % (0.5-1.5)
[2024-09-03 09:26] LABS: Hemoglobin 11.2 g/dL (12.0-15.0)
--- NOTE | 2024-09-03 09:30 | RAD_ITS ---
STUDY: X-RAY - ABDOMEN/PELVIS REASON FOR EXAM: Female, 58 years old. MRI -- Portable TECHNIQUE: Single AP view of the abdomen / pelvis. COMPARISON: None. FINDINGS: Opacification of the left lower lobe with shift of the heart and mediastinum towards the left side of midline. There is an unremarkable bowel gas pattern. The visualized liver, spleen and kidneys are grossly normal in size and morphology. Normal soft tissue structures. Prior vertebroplasty of the T12 vertebrae. Prior intraventricular screw salvador fixation of the lower thoracic and upper lumbar spine. RAD/Abdomen Single View (Portable) IMPRESSION: No radiopaque foreign bodies seen. Electronically Signed: Pedro Messer MD at 9:52 EST ,
[2024-09-03 09:40] LABS: Ferritin 39 ng/mL (8-252); Iron 11 ug/dL (50-170); Iron Binding Capacity,Total 246 ug/dL (250-450); PERCENT IRON SATURATION 4.5 % (15.0-55.0)
--- NOTE | 2024-09-03 10:10 | CASEMGMT ---
Addendum entered by Pat Cooper 09/03/24 11:16: Social Work Return call from Jose Herron. Jose states he is a friend of pt and confirms pt is not , has a daughter but Jose does not know her name or where she is, parents are and Jose is uncertain of siblings. JUAN CARLOS Harding Original Note: Social Work No emergency contact listed for pt. Pt currently on ventilator and unresponsive. MELVA reviewed pt's medical chart. No contact information in previous health records. MELVA called [facility], as pt was referred in November 2023. [facility] states that at the time of her assessment, pt stated she had no emergency contacts and sited [facility] or the police as her contact with no specific information given. SW called [employer]. Officer was familiar with pt and states that he has dealt with pt multiple times but pt has never mentioned any family or friends. Officer states pt lives at [facility] and campus manager may have contact information. MELVA called [facility] and spoke with Filling Station Laborer Reena who is able to provide two contacts. Marleny Huy [phone] and Jose Herron [phone], both listed as friends. MELVA called Marleny Son who confirms she is a friend of patient. Marleny states pt does have a daughter, but Marleny does not know dgt's name or how to get a hold of her. Marleny states pt is not , pt's parents are both and pt's siblings are . During conversation, Marleny did appear concerned for pt's well being. MELVA called Jose Herron and VM left requesting return call. At this time, pt has no emergency contact/medical decision maker. Marleny ([phone]) is a friend who could be contacted for support for pt. JUAN CARLOS Harding
[2024-09-03] MEDS: Potassium Chloride Oral Soln 20 MEQ/15 ML UDC 40 MEQ PO (11:27)
[2024-09-03] MEDS: Chlorhexidine 15 ML PO ×2 (11:28→21:16)
[2024-09-03] MEDS: Enoxaparin 40 MG/0.4 ML Syringe SC (11:32)
[2024-09-03] MEDS: Pantoprazole Sodium 40 MG in 0.9% Normal Saline (100mL MB+) 100 ML 330 MG IV ×2 (11:33→21:12)
--- NOTE | 2024-09-03 11:43 | CASEMGMT ---
Per ICU rounds, pt is unresponsive and unstable at this time. Pt is on the mechanical ventilator. Pt does not have a call worker person on file, see SW note. Pt is also from [facility] and per ICU rounds, was released form custody in the ER. Initial assessment deferred at this time due to the aforementioned complications. CM/SW to continue to follow.
[2024-09-03] MEDS: Vital AF 1.2 Cal Liquid 1,000 ML 20 ML GT (12:00)
[2024-09-03] MEDS: fentaNYL drip 100 ML 5 MCG CONT INF (12:05)
[2024-09-03 12:36] LABS: Bedside Glucose 101 mg/dL (74-106)
--- NOTE | 2024-09-03 13:37 | CPS ---
pt is off the floor for an MRI at this time.
--- NOTE | 2024-09-03 17:08 | CASEMGMT ---
Social Work MELVA received phone call from pt's friend Jose. Jose states he go a hold of pt's dgt through facebook and dgt is on the way in. Dgts name is Anna Gallegos. Jose states that Anna does not want to talk to a transition social worker and would not give this worker a phone number. MELVA called [facility] and updated. Aldo states that Anna and Anna's aunt are currently here. MELVA requested RN obtain contact information for both parties. JUAN CARLOS Harding
[2024-09-04] VITALS (35 sets, daily range): BP systolic 87–129; BP diastolic 60–96; PULSE 64–140; RESP 14–38; TEMP 35.9–37.7; O2SAT 92–100; BMI 23.1
[2024-09-04] MEDS: Ipratropium/Albuterol Sulfate 3 ML AMPUL.NEB INHALATION ×6 (02:34→23:05)
[2024-09-04] MEDS: Propofol 10MG/Ml 1,000 MG/100 ML Bottle 8 MG CONT INF (05:15)
[2024-09-04] MEDS: Piperacil/Tazobactam 3.375 GM in 0.9% Normal Saline (50mL MB+) 50 ML IV ×3 (05:24→21:03)
[2024-09-04] MEDS: fentaNYL drip 100 ML 5 MCG CONT INF (05:30)
[2024-09-04 05:55] LABS: Absolute Lymphocyte Count 1.35 X10^3/uL (0.83-4.51); Absolute Neutrophil Count 6.2 X10^3/uL (2.0-7.7); Basophil# 0.03 X10^3/uL; Basophil% 0.4 % (0-1); Eosinophil# 0.12 X10^3/uL; Eosinophils% 1.4 % (0-5); Hematocrit 36.8 % (37-47); Lymphocyte # 1.35 X10^3/ul (0.83-4.51); Lymphocyte % 15.8 % (19-41); Mean Corp Hgb Conc 32.6 g/dL (32-36); Mean Corpuscular Hgb 31.8 pg (27.0-32.0); Mean Corpuscular Volume 97.6 fL (81-99); Mean Platelet Vol. 9.8 fl (6.2-12.0); Monocyte# 0.76 X10^3/uL; Monocyte% 8.9 % (0-10); NRBC Flagged by Analyzer 0 % (0-5); Neutrophil # 6.24 X10^3/uL (2.7-7.7); Neutrophil % 73.3 % (47-70); Platelet Count 227 K/mm3 (150-450); RBC Distribution Width CV 14.4 % (11.6-14.6); RBC Distribution Width SD 52.2 fl (35.1-43.9); Red Blood Count 3.77 M/mm3 (4.2-5.4); White Blood Count 8.5 K/mm3 (4.4-11.0)
[2024-09-04 06:47] LABS: ALB/GLOB Ratio 0.6 RATIO (0.9-2.4); AST(SGOT) 27 U/L (15-37); Alanine Aminotransfer ALT/SGPT 13 U/L (13-56); Albumin, Serum 2.4 g/dL (3.2-5.0); Alkaline Phosphatase 60 U/L (45-117); Anion Gap 4 (5-15); BUN 6 mg/dL (7-18); BUN/Creat Ratio 9.8 RATIO (10-20); Calcium,Total 8.3 mg/dL (8.5-10.1); Chloride 112 mmol/L (98-107); Creatinine, Serum 0.61 mg/dL (0.55-1.02); EST Glomerular Filtration Rate 106 mL/min (>60); Est Glom Filt Rate - Afr Amer 128 mL/min (>60); Estimated Creatinine Clearance 94.11 ml/min; Globulin 3.7 g/dL (2.2-4.2); Glucose 113 mg/dL (74-106); Potassium 3.9 mmol/L (3.5-5.1); Protein, Total 6.1 g/dL (6.4-8.2); Sodium Level 141 mmol/L (136-145)
--- NOTE | 2024-09-04 07:31 | PCM.PN.HOSP ---
Reason for Visit Reason for Visit: Unresponsiveness Subjective Subjective No specific issues overnight. Patient was on weaning trial and tried sedation vacation this morning to prepare for spontaneous breathing trial however per discussion with respiratory therapist she got very agitated with tachycardia hypertension off sedation. Objective Data Objective Data Vital Signs: Vital Signs Temp Pulse Resp BP Pulse Ox O2 Del Method O2 Flow Rate 99.2 F H 97 14 105/73 96 Mechanical Ventilator 4 09/04/24 06:00 09/04/24 07:00 09/04/24 07:00 09/04/24 07:00 09/04/24 07:00 09/04/24 07:00 09/02/24 14:00 FiO2 30 09/04/24 07:00 Oxygen Flow Rate (L/min) 4 Oxygen Delivery Method Mechanical Ventilator Weight: 65.2 kg Body Mass Index (BMI) 23.1 Intake & Output: Intake and Output for Last 24 Hours 09/02/24 09/03/24 09/04/24 23:59 23:59 23:59 Intake Total 2496.42 / 2509.42 2491.13 / 2502.13 147.25 / 147.25 Output Total 1200 / 1200 750 / 950 535 / 535 Balance 1296.42 / 1309.42 1741.13 / 1552.13 -387.75 / -387.75 Lab / Micro Data 09/04/24 05:18 09/04/24 05:18 Labs: Laboratory Results - last 24 hr 09/03/24 08:55: Hgb 11.2 L, Retic Count 1.03, Immature Retic Fraction 9.90, Retic Hgb Equivalent 34.9, Iron 11 L, TIBC 246 L, Iron Saturation 4.5 L, Ferritin 39, Ammonia 15.0, TSH 1.530 09/03/24 12:14: POC Glucose 101 09/04/24 05:18: WBC 8.5, RBC 3.77 L, Hgb 12.0, Hct 36.8 L, MCV 97.6, MCH 31.8, MCHC 32.6, RDW Std Deviation 52.2 H, RDW Coeff of Neil 14.4, Plt Count 227, MPV 9.8, Immature Gran % (Auto) 0.200, Neut % (Auto) 73.3 H, Lymph % (Auto) 15.8 L, [place] % (Auto) 8.9, Eos % (Auto) 1.4, Baso % (Auto) 0.4, Absolute Neuts (auto) 6.2, Absolute Lymphs (auto) 1.35, Nucleated RBC % 0, Sodium 141, Potassium 3.9, Chloride 112 H, Carbon Dioxide 25.0, Anion Gap 4 L, BUN 6 L, Creatinine 0.61, Estim Creat Clear Calc 94.11, Est GFR (MDRD) Af Amer 128, Est GFR (MDRD) Non-Af 106, BUN/Creatinine Ratio 9.8 L, Glucose 113 H, Calcium 8.3 L, Total Bilirubin 0.40, AST 27, ALT 13, Alkaline Phosphatase 60, Total Protein 6.1 L, Albumin 2.4 L, Globulin 3.7, Albumin/Globulin Ratio 0.6 L Micro: Microbiology 09/02/24 14:25 Sputum, Induced/Lukens Gram Stain - Final 09/02/24 09:06 Urine Catheter - Catheter Legionella Antigen - Final 09/02/24 09:06 Urine Catheter - Catheter Streptococcus pneumoniae Antigen (M - Final 09/02/24 08:55 Mucosa - Nose SARS-CoV-2, Influenza & RSV (PCR) - Final ABG Data ABG results: ABG 09/03/24 08:30 Specimen Type ART Sample Site R Brach pH 7.37 Bicarbonate Actual 23.6 Total CO2 25 Base Excess -2 O2 Saturation 90 L O2 % 30.0 ABG pCO2 41.3 ABG pO2 60 L Respiration Rate 14 O2 Delivery Device Adult Vent Vent Mode AC Tidal Volume 450.0 POC PEEP 5 Radiography Diagnostic Testing: Radiology Impression Brain MRI 09/03/24 08:25 IMPRESSION: 1. Involutional and mild chronic ischemic changes of the brain, as described above. 2. No acute infarct or intracranial hemorrhage 3. No hydrocephalus or midline shift is present. There is no evidence of hypoxic ischemic encephalopathy or acute metabolic toxic encephalopathy by MR criteria. Electronically Signed: Stewart Riddle MD at 15:23 EST , KUB X-Ray 09/03/24 09:30 IMPRESSION: No radiopaque foreign bodies seen. Electronically Signed: Pedro Messer MD at 9:52 EST , Rhythm Strip Rhythm Strip: Sinus Rhythm Rate: 88 Ectopy: None Physical Exam Const no apparent distress and average body habitus; Negative for healthy appearing Constitutional Narrative: Obtunded, middle-aged, white female, lying in bed on ventilator, appears older than stated age, unresponsive to verbal and noxious stimuli, on sedation HEENT normocephalic, head/scalp atraumatic, hearing grossly normal bilaterally and moist oral mucous membranes HEENT Narrative: ET tube and OG in place Eyes Eyes Narrative: Pupils are pinpoint on fentanyl, conjunctiva are normal, no scleral icterus Neck supple Neck Narrative: Trachea midline Resp normal respiratory effort, no retractions, no use of accessory muscles and clear to auscultation bilaterally Resp Narrative: Scattered rhonchi especially noted in the right Auscultation: rhonchi; Negative for rales or wheezes Cardio regular rate, regular rhythm, S1 normal heart sound, S2 normal heart sound, no murmurs, no rub, no gallops and no clicks GI normal to inspection, nondistended, normoactive bowel sounds, soft to palpation and non-tender GI Narrative: Abdomen is scaphoid Extremity normal to inspection and no clubbing, cyanosis or edema Extremity Narrative: Pedal pulses are 1+ bilaterally, radial pulses are 2+ bilaterally Neuro Neuro Narrative: Patient is sedated Psych Psych Narrative: Unable to assess due to mental status Assessment & Plan Assessment/Plan (1) Sepsis: (2) Acute hypoxemic respiratory failure: (3) Acidosis, lactic: (4) Anemia: (5) Toxic encephalopathy: (6) Hypokalemia: (7) Aspiration pneumonia: PLAN: Plan Sepsis secondary to suspected aspiration pneumonia -Sputum cultures pending however suspect based on Gram stain is going to be positive with oral bassam and consistent with aspiration pneumonia -Continue Zosyn day 3 of 7 -Sputum culture with 2+ gram-positive cocci and 1+ gram-positive rods -Blood cultures remain pending -ICU medicine is following Acute hypoxic respiratory failure -Patient with mild hypoxemia and intubated predominantly for altered mental status and airway protection -Intubated on 09/02/2024 -Patient still with altered mental status but patient became very agitated off sedation -Continue mechanical ventilation with sedation vacations and weaning per protocol -Continue nebulizers as ordered -Pulmonary/critical care medicine is following Toxic/metabolic encephalopathy -Etiology is unclear -Pupils are pinpoint so suspected to be related to fentanyl use with a negative talk screen however patient fairly nonresponsive to Narcan -Also fairly nonresponsive to flumazenil despite tox screen positive for benzodiazepines -ABG does not explain altered mental status -Ammonia within normal limits -MRI showed involutional and mild chronic ischemic changes with no acute abnormality -EEG with findings consistent with encephalopathic state -Would like to see how she does off sedation and is still markedly altered median neuro involvement however I do suspect this is more toxic and metabolic than anything specifically neurological Hypokalemia -Resolved Acute anemia -Hemoglobin on presentation was 14.3 however patient did seem to be hemoconcentrated -Hemoglobin was 8.3 yesterday morning but repeat was 11.2 with hemoglobin of 12.0 today -Highly suspect 8.3 was a spurious result report outside lab -Repeat CBC in a.m. Anxiety/depression -It appears patient was previously on Xanax, Wellbutrin, and duloxetine -Will need to verify medication once able--> not yet able to verify as we have not been able to identify next of kin or pharmacy History of vitamin D deficiency -Patient previously has been on ergocalciferol -Await med reconciliation to be finalized Chronic pain -Hold home gabapentin -Hold home diclofenac Tobacco abuse -Recommend cessation -Once extubated the patient needs nicotine replacement placement will prescribe DVT prophylaxis -Will continue enoxaparin CODE STATUS -Full code but unverified due to patient's mental status and lack of familial availability on presentation Charges/Coding Visit Charges Inpatient E&M: 24960 Subs Hosp L2
--- NOTE | 2024-09-04 07:38 | PCM.PN.INT ---
Assessment & Plan Assessment/Plan (1) Sepsis: (2) Toxic encephalopathy: (3) Aspiration pneumonia: (4) Acute hypoxemic respiratory failure: PLAN: Plan RECOMMENDATIONS: 1. Plan to stop propofol and transition to Precedex and fentanyl for sedation. 2. Plan to repeat spontaneous awakening and breathing trial tomorrow morning. 3. Continue tube feeding as tolerated. 4. Continue antibiotics. 5. Continue appropriate ICU prophylaxis. IMPRESSIONS: 1. Acute hypoxemic respiratory failure Clinical concern for underlying aspiration pneumonia. Ventilator requirements are currently minimal. Will plan to further optimize the patient's sedation regimen in hopes that she will better be able to complete a spontaneous awakening and breathing trial tomorrow morning. Her propofol will be transition to Precedex. Fentanyl will be continued. Continue to wean FiO2 as tolerated. The patient will be maintained on antibiotics along with scheduled bronchodilators, given her history of tobacco dependency. 2. Sepsis secondary to suspected aspiration pneumonia The patient did receive supplemental IV fluid hydration and remains hemodynamically stable. Cultures are currently pending. Plan to continue empiric antibiotics. 3. Toxic/metabolic encephalopathy Unclear etiology. Most likely metabolic in etiology. The patient's MRI brain and EEG were unrevealing. TSH and ammonia level were normal. Will plan to optimize the patient's sedation regimen in hopes that she will better be able to complete a spontaneous awakening trial tomorrow morning. 4. History of chronic pain syndrome/chronic tobacco dependency/anxiety/depression Complicates care, management, recovery and prognosis. Continue to hold home medications for now. Continue supportive care as noted above. Continue tube feeding as tolerated. TIME: 33 minutes of critical care time, independent of procedures, was spent addressing the patient's acute hypoxemic respiratory failure, sepsis, toxic/metabolic encephalopathy, review of all data and collaboration with the care team. Subjective Subjective The patient was seen and examined at the bedside this morning. Events from the last 24 hours have been reviewed. The patient is currently afebrile, hemodynamically stable and maintaining appropriate oxygen saturations on assist-control mode mechanical ventilation with an FiO2 requirement of 30% and PEEP of 5. The patient is currently documented to be overall net +2.6 L for the hospitalization. According to nursing report, the patient did much better this morning with her awakening trial, but eventually be again to experience significant anxiety, which led to tachycardia and tachypnea. Therefore, her spontaneous awakening trial was aborted. White blood cell count remains normal this morning. Hemoglobin and platelet count are stable. Chemistry profile was unremarkable. MRI and EEG completed yesterday were unrevealing. TSH and ammonia levels were normal. Objective Data Objective Data The patient's most recent lab work, culture data and imaging studies have all been personally reviewed. COVID, influenza and RSV PCR's were negative. Strep and urine Legionella antigens were negative. Blood and sputum cultures have not demonstrated any growth to date. Vital Signs: Vital Signs Temp Pulse Resp BP Pulse Ox O2 Del Method O2 Flow Rate 99.2 F H 97 14 105/73 96 Mechanical Ventilator 4 09/04/24 06:00 09/04/24 07:00 09/04/24 07:00 09/04/24 07:00 09/04/24 07:00 09/04/24 07:00 09/02/24 14:00 FiO2 30 09/04/24 07:00 Oxygen Flow Rate (L/min) 4 Oxygen Delivery Method Mechanical Ventilator Weight: 143 lb 11.862 oz Body Mass Index (BMI) 23.1 Intake & Output: Intake and Output for Last 24 Hours 09/02/24 09/03/24 09/04/24 23:59 23:59 23:59 Intake Total 2496.42 / 2509.42 2491.13 / 2502.13 147.25 / 147.25 Output Total 1200 / 1200 750 / 950 535 / 535 Balance 1296.42 / 1309.42 1741.13 / 1552.13 -387.75 / -387.75 Lab / Micro Data Attestation: I reviewed the patient's lab results. 09/04/24 05:18 09/04/24 05:18 Labs: Laboratory Results - last 24 hr 09/03/24 08:55: Hgb 11.2 L, Retic Count 1.03, Immature Retic Fraction 9.90, Retic Hgb Equivalent 34.9, Iron 11 L, TIBC 246 L, Iron Saturation 4.5 L, Ferritin 39, Ammonia 15.0, TSH 1.530 09/03/24 12:14: POC Glucose 101 09/04/24 05:18: WBC 8.5, RBC 3.77 L, Hgb 12.0, Hct 36.8 L, MCV 97.6, MCH 31.8, MCHC 32.6, RDW Std Deviation 52.2 H, RDW Coeff of Neil 14.4, Plt Count 227, MPV 9.8, Immature Gran % (Auto) 0.200, Neut % (Auto) 73.3 H, Lymph % (Auto) 15.8 L, [place] % (Auto) 8.9, Eos % (Auto) 1.4, Baso % (Auto) 0.4, Absolute Neuts (auto) 6.2, Absolute Lymphs (auto) 1.35, Nucleated RBC % 0, Sodium 141, Potassium 3.9, Chloride 112 H, Carbon Dioxide 25.0, Anion Gap 4 L, BUN 6 L, Creatinine 0.61, Estim Creat Clear Calc 94.11, Est GFR (MDRD) Af Amer 128, Est GFR (MDRD) Non-Af 106, BUN/Creatinine Ratio 9.8 L, Glucose 113 H, Calcium 8.3 L, Total Bilirubin 0.40, AST 27, ALT 13, Alkaline Phosphatase 60, Total Protein 6.1 L, Albumin 2.4 L, Globulin 3.7, Albumin/Globulin Ratio 0.6 L Micro: Microbiology 09/02/24 14:25 Sputum, Induced/Lukens Gram Stain - Final 09/02/24 09:06 Urine Catheter - Catheter Legionella Antigen - Final 09/02/24 09:06 Urine Catheter - Catheter Streptococcus pneumoniae Antigen (M - Final 09/02/24 08:55 Mucosa - Nose SARS-CoV-2, Influenza & RSV (PCR) - Final ABG Data ABG results: ABG 09/03/24 08:30 Specimen Type ART Sample Site R Brach pH 7.37 Bicarbonate Actual 23.6 Total CO2 25 Base Excess -2 O2 Saturation 90 L O2 % 30.0 ABG pCO2 41.3 ABG pO2 60 L Respiration Rate 14 O2 Delivery Device Adult Vent Vent Mode AC Tidal Volume 450.0 POC PEEP 5 Radiography Diagnostic Testing: Radiology Impression Brain MRI 09/03/24 08:25 IMPRESSION: 1. Involutional and mild chronic ischemic changes of the brain, as described above. 2. No acute infarct or intracranial hemorrhage 3. No hydrocephalus or midline shift is present. There is no evidence of hypoxic ischemic encephalopathy or acute metabolic toxic encephalopathy by MR criteria. Electronically Signed: Stewart Riddle MD at 15:23 EST , KUB X-Ray 09/03/24 09:30 IMPRESSION: No radiopaque foreign bodies seen. Electronically Signed: Pedro Messer MD at 9:52 EST , Rhythm Strip Rhythm Strip: Sinus Rhythm Rate: 88 Ectopy: None Physical Exam Const Constitutional Narrative: Remains intubated and mechanically ventilated. No ventilator dyssynchrony noted. HEENT normocephalic and head/scalp atraumatic Mouth: endotracheal tube in place and OG tube in place Eyes conjunctivae normal Eyes Narrative: Pinpoint pupils bilaterally. Neck supple General: trachea midline Chest inspection of chest normal Resp normal respiratory effort Auscultation: diminished lung sounds; Negative for rales, rhonchi or wheezes Cardio regular rate and regular rhythm GI normal to inspection, nondistended, normoactive bowel sounds Extremity no clubbing, cyanosis or edema Skin no rashes or lesions noted Neuro Sensorium / Orientation: sedated on vent Charges/Coding Procedures Hospitalists Procedures: 29652 Critical Care 1st Hr
[2024-09-04] MEDS: dexMEDEtomidine 400 MCG in 0.9% Normal Saline (100mL Bag) 96 ML 8.2 MCG CONT INF (10:15)
[2024-09-04] MEDS: Chlorhexidine 15 ML PO ×2 (10:15→20:20)
[2024-09-04] MEDS: Enoxaparin 40 MG/0.4 ML Syringe SC (10:16)
[2024-09-04] MEDS: CHLORHEXIDINE GLUC 2% CLOTH 1 EACH TOWELETTE TOPICAL (10:16)
[2024-09-04] MEDS: Pantoprazole Sodium 40 MG in 0.9% Normal Saline (100mL MB+) 100 ML 330 MG IV (10:24)
--- NOTE | 2024-09-04 12:36 | CASEMGMT ---
RN SHELLY Assessment Face to Face with patient for initial transition planning/care coordination assessment. Pt is currently sedated and on the mechanical ventilator and is unable to answer this RN CM questions for assessment as needed. There is currently no family at bedside. See SW notes. TC to pt Anna CRUMP (Daughter) at this time. Anna is with the pt's sister, Domitila and they are both currently at the pts apartment. Both are agreeable to answering this RN CM's questions. Care providers, pharmacy, and demographics verified. Admitting dx: Unresponsive LACE Strata: 1 PCP: Pt does not have a PCP. CM/SW to follow. 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 Preferred Pharmacy: [facility] during this stay Insurance: [facility] Prescription Benefit: Yes LNOK: Anna Bowman ([place]), Domitila Golden (Sister) Living Arrangements: Pt lives alone in a second story apartment with an elevator to access or a flight of steps ADLs/IADLs: Ind prior to arrival Transportation: Pt, sister, daughter. Pt daughter states that the pts car is currently broken down DME: Nebulizer, inhaler, FWW HHC/SNF: Denies Hx Pt?s goal: TBD Plan: TBD. Today is VD#3. Pt failed the SBT this morning d/t anxiety/tachycardia. Per ICU rounds, pt came from [facility] but was released from custody in the ER. CM and SW to follow pt progression in the hospital to decipher the safest DC plan moving forward. Pt daughter and sister request this [facility] contact information. # provided. Pt daughter and sister deny further questions or concerns at this time. CM and SW to follow. Sin Nevarez RN, CM
[2024-09-04] MEDS: 0.9% Normal Saline (100mL Bag) 100 ML 15 ML IV (14:00)
[2024-09-04] MEDS: fentaNYL drip 100 ML 10 MCG CONT INF (16:57)
[2024-09-04] MEDS: dexMEDEtomidine 400 MCG in 0.9% Normal Saline (100mL Bag) 96 ML 13 MCG CONT INF (17:31)
[2024-09-04] MEDS: Vital AF 1.2 Cal Liquid 1,000 ML 50 ML GT (20:00)
[2024-09-05] VITALS (32 sets, daily range): BP systolic 99–148; BP diastolic 57–100; PULSE 67–122; RESP 14–37; TEMP 35.7–38.1; O2SAT 88–97; BMI 23.8
[2024-09-05] MEDS: dexMEDEtomidine 400 MCG in 0.9% Normal Saline (100mL Bag) 96 ML 16.3 MCG CONT INF (00:40)
[2024-09-05] MEDS: fentaNYL drip 100 ML 10 MCG CONT INF (02:47)
[2024-09-05] MEDS: Ipratropium/Albuterol Sulfate 3 ML AMPUL.NEB INHALATION ×3 (03:41→11:10)
[2024-09-05 04:02] LABS: Absolute Lymphocyte Count 1.01 X10^3/uL (0.83-4.51); Basophil# 0.04 X10^3/uL; Basophil% 0.7 % (0-1); Eosinophil# 0.28 X10^3/uL; Eosinophils% 4.7 % (0-5); Hematocrit 33.2 % (37-47); Hemoglobin 11.4 g/dL (12.0-15.0); Lymphocyte # 1.01 X10^3/ul (0.83-4.51); Lymphocyte % 16.8 % (19-41); Mean Corp Hgb Conc 34.3 g/dL (32-36); Mean Corpuscular Hgb 32.2 pg (27.0-32.0); Mean Corpuscular Volume 93.8 fL (81-99); Mean Platelet Vol. 9.4 fl (6.2-12.0); Monocyte# 0.63 X10^3/uL; Monocyte% 10.5 % (0-10); NRBC Flagged by Analyzer 0 % (0-5); Neutrophil # 4.03 X10^3/uL (2.7-7.7); Neutrophil % 67.1 % (47-70); Platelet Count 218 K/mm3 (150-450); RBC Distribution Width CV 13.8 % (11.6-14.6); RBC Distribution Width SD 47.5 fl (35.1-43.9); Red Blood Count 3.54 M/mm3 (4.2-5.4)
[2024-09-05 04:28] LABS: Anion Gap 10 (5-15); BUN 8 mg/dL (7-18); BUN/Creat Ratio 15.6 RATIO (10-20); Calcium,Total 8.8 mg/dL (8.5-10.1); Chloride 110 mmol/L (98-107); Creatinine, Serum 0.51 mg/dL (0.55-1.02); EST Glomerular Filtration Rate 130 mL/min (>60); Est Glom Filt Rate - Afr Amer 158 mL/min (>60); Estimated Creatinine Clearance 112.56 ml/min; Glucose 113 mg/dL (74-106); Magnesium 1.9 mg/dL (1.6-2.6); Phosphorus 2.8 mg/dL (2.5-4.9); Potassium 2.8 mmol/L (3.5-5.1); Sodium Level 142 mmol/L (136-145)
[2024-09-05] MEDS: Piperacil/Tazobactam 3.375 GM in 0.9% Normal Saline (50mL MB+) 50 ML IV (06:35)
[2024-09-05] MEDS: dexMEDEtomidine 400 MCG in 0.9% Normal Saline (100mL Bag) 96 ML 11.4 MCG CONT INF (07:39)
[2024-09-05] MEDS: Potassium Chloride Oral Soln 20 MEQ/15 ML UDC 40 MEQ PO ×2 (07:43→21:50)
--- NOTE | 2024-09-05 07:44 | PN.CC_ITS ---
Assessment & Plan Assessment/Plan (1) Sepsis: (2) Toxic encephalopathy: (3) Aspiration pneumonia: (4) Acute hypoxemic respiratory failure: PLAN: Plan RECOMMENDATIONS: 1. Proceed with a trial of extubation this morning. 2. Once extubated, wean supplemental oxygen to maintain saturations at or above 90%. 3. Obtain speech therapy consultation prior to advancement of diet. 4. Initiate CIWA protocol with as needed Ativan. 5. Once patient is able to tolerate p.o. intake, transition antimicrobials to Augmentin to complete treatment course. 6. Continue appropriate DVT prophylaxis. 7. Encourage incentive spirometer use and mobilize patient as tolerated. IMPRESSIONS: 1. Acute hypoxemic respiratory failure Clinical concern for underlying aspiration pneumonia. With supportive care, including invasive mechanical ventilation and antimicrobial therapy, the patient was able to be successfully extubated on the morning of September 05. Once extubated, supplemental oxygen will be weaned to maintain saturations at or above 90%. Plan to encourage incentive spirometer use and mobilize patient as tolerated. Recommend continuing antibiotics to complete 7 days of therapy. Continue bronchodilator therapy, given history of tobacco dependency. 2. Sepsis secondary to suspected aspiration pneumonia The patient did receive supplemental IV fluid hydration and remains hemodynamically stable. Cultures have not demonstrated any growth to date. Once the patient is able to tolerate p.o. intake, antibiotics can be transition to Augmentin to complete 7 days of therapy. 3. Toxic/metabolic encephalopathy Unclear etiology. Most likely metabolic in etiology. The patient's MRI brain and EEG were unrevealing. TSH and ammonia level were normal. With supportive care, the patient's mental status has improved. 4. History of chronic pain syndrome/chronic tobacco and alcohol dependency/anxiety/depression Complicates care, management, recovery and prognosis. Given the patient's history of alcohol dependency, will initiate CIWA protocol with as needed Ativan. Recommend speech therapy evaluation prior to advancement of diet. TIME: 35 minutes of critical care time, independent of procedures, was spent addressing the patient's acute hypoxemic respiratory failure, sepsis, toxic/metabolic encephalopathy, review of all data and collaboration with the care team. Subjective Subjective The patient was seen and examined at the bedside this morning. Events from the last 24 hours have been reviewed. The patient is currently afebrile, hemodynamically stable and maintaining appropriate oxygen saturations with an FiO2 requirement of 25%. The patient did much better this morning with her spontaneous awakening trial on Precedex. She subsequently passed a breathing trial and was therefore able to be extubated. I did speak with her daughter, who presented to the bedside, who indicated that the patient is a daily drinker of vodka. The patient is currently documented to be overall net +3.6 L for the hospitalization. White blood cell count remains normal. Hemoglobin is stable at 11.4 g/dL. Platelet count is within normal limits. Potassium is low at 2.8. Objective Data Objective Data The patient's most recent lab work, culture data and imaging studies have all been personally reviewed. COVID, influenza and RSV PCR's were negative. Strep and urine Legionella antigens were negative. Blood and sputum cultures have not demonstrated any growth to date. Vital Signs: Vital Signs Temp Pulse Resp BP Pulse Ox O2 Del Method O2 Flow Rate 97.6 F L 78 18 127/90 H 96 Mechanical Ventilator 4 09/05/24 00:00 09/05/24 07:00 09/05/24 07:00 09/05/24 07:00 09/05/24 07:00 09/05/24 07:00 09/02/24 14:00 FiO2 09/05/24 07:00 Oxygen Flow Rate (L/min) 4 Oxygen Delivery Method Mechanical Ventilator Weight: 147 lb 14.883 oz Body Mass Index (BMI) 23.8 Intake & Output: Intake and Output for Last 24 Hours 09/03/24 09/04/24 09/05/24 23:59 23:59 23:59 Intake Total 2491.13 / 2502.13 1623.92 / 1748.62 453.34 / 453.34 Output Total 750 / 950 1075 / 1175 400 / 400 Balance 1741.13 / 1552.13 548.92 / 573.62 53.34 / 53.34 Lab / Micro Data Attestation: I reviewed the patient's lab results. 09/05/24 03:12 09/05/24 03:12 Labs: Laboratory Results - last 24 hr 09/05/24 03:12: WBC 6.0, RBC 3.54 L, Hgb 11.4 L, Hct 33.2 L, MCV 93.8, MCH 32.2 H, MCHC 34.3 D, RDW Std Deviation 47.5 H, RDW Coeff of Neil 13.8, Plt Count 218, MPV 9.4, Immature Gran % (Auto) 0.200, Neut % (Auto) 67.1, Lymph % (Auto) 16.8 L , [place] % (Auto) 10.5 H, Eos % (Auto) 4.7, Baso % (Auto) 0.7, Absolute Neuts (auto) 4.0, Absolute Lymphs (auto) 1.01, Nucleated RBC % 0, Sodium 142, P otassium 2.8 L, Chloride 110 H, Carbon Dioxide 23.0, Anion Gap 10, BUN 8, C reatinine 0.51 L, Estim Creat Clear Calc 112.56, Est GFR (MDRD) Af Amer 158, Est GFR (MDRD) Non-Af 130, BUN/Creatinine Ratio 15.6, Glucose 113 H, Calcium 8.8, Phosphorus 2.8, Magnesium 1.9 Micro: Microbiology 09/02/24 10:50 Blood Culture (Wb) - Arm Right Blood Culture - Preliminary No growth in 48 hours. 09/02/24 10:50 Blood Culture (Wb) - Left Hand Blood Culture - Preliminary No growth in 48 hours. 09/02/24 14:25 Sputum, Induced/Lukens Gram Stain - Final 09/02/24 14:25 Sputum, Induced/Lukens Respiratory Culture - Final Mixed normal respiratory bassam. No Streptococcus pneumoniae, beta-hemolytic Streptococcus or Staphylococcus aureus isolated. 09/02/24 09:06 Urine Catheter - Catheter Legionella Antigen - Final 09/02/24 09:06 Urine Catheter - Catheter Streptococcus pneumoniae Antigen (M - Final 09/02/24 08:55 Mucosa - Nose SARS-CoV-2, Influenza & RSV (PCR) - Final ABG Data ABG results: ABG 09/03/24 08:30 Specimen Type ART Sample Site R Brach pH 7.37 Bicarbonate Actual 23.6 Total CO2 25 Base Excess -2 O2 Saturation 90 L O2 % 30.0 ABG pCO2 41.3 ABG pO2 60 L Respiration Rate 14 O2 Delivery Device Adult Vent Vent Mode AC Tidal Volume 450.0 POC PEEP 5 Radiography Diagnostic Testing: Radiology Impression Brain MRI 09/03/24 08:25 IMPRESSION: 1. Involutional and mild chronic ischemic changes of the brain, as described above. 2. No acute infarct or intracranial hemorrhage 3. No hydrocephalus or midline shift is present. There is no evidence of hypoxic ischemic encephalopathy or acute metabolic toxic encephalopathy by MR criteria. Electronically Signed: Stewart Riddle MD at 15:23 EST , KUB X-Ray 09/03/24 09:30 IMPRESSION: No radiopaque foreign bodies seen. Electronically Signed: Pedro Messer MD at 9:52 EST , Rhythm Strip Rhythm Strip: Sinus Rhythm Rate: 88 Ectopy: None Physical Exam Const no apparent distress Constitutional Narrative: Remains intubated and mechanically ventilated. Currently tolerating spontaneous mode of mechanical ventilation. HEENT normocephalic and head/scalp atraumatic Mouth: endotracheal tube in place and OG tube in place Eyes conjunctivae normal Eyes Narrative: Pinpoint pupils bilaterally. Neck supple General: trachea midline Chest inspection of chest normal Resp normal respiratory effort Auscultation: diminished lung sounds; Negative for rales, rhonchi or wheezes Cardio regular rate and regular rhythm GI normal to inspection, nondistended, normoactive bowel sounds Extremity no clubbing, cyanosis or edema Skin no rashes or lesions noted Neuro Neuro Narrative: Alert and able to follow simple commands. Charges/Coding Procedures Hospitalists Procedures: [id number] Critical Care 1st Hr
--- NOTE | 2024-09-05 08:22 | PN.HOSP_ITS ---
Reason for Visit Reason for Visit: Altered mental status/unresponsive Subjective Subjective No issues overnight. Patient is awake and following commands. Anticipate extubation later today as patient is also on minimal vent settings with an FiO2 of 25%. Objective Data Objective Data Vital Signs: Vital Signs Temp Pulse Resp BP Pulse Ox O2 Del Method O2 Flow Rate 96.2 F L 88 16 134/96 H 94 Mechanical Ventilator 4 09/05/24 08:00 09/05/24 08:00 09/05/24 08:00 09/05/24 08:00 09/05/24 08:00 09/05/24 08:00 09/02/24 14:00 FiO2 09/05/24 08:00 Oxygen Flow Rate (L/min) 4 Oxygen Delivery Method Mechanical Ventilator Weight: 67.1 kg Body Mass Index (BMI) 23.8 Intake & Output: Intake and Output for Last 24 Hours 09/03/24 09/04/24 09/05/24 23:59 23:59 23:59 Intake Total 2491.13 / 2502.13 1623.92 / 1748.62 453.34 / 453.34 Output Total 750 / 950 1075 / 1175 400 / 400 Balance 1741.13 / 1552.13 548.92 / 573.62 53.34 / 53.34 Lab / Micro Data 09/05/24 03:12 09/05/24 03:12 Labs: Laboratory Results - last 24 hr 09/05/24 03:12: WBC 6.0, RBC 3.54 L, Hgb 11.4 L, Hct 33.2 L, MCV 93.8, MCH 32.2 H, MCHC 34.3 D, RDW Std Deviation 47.5 H, RDW Coeff of Neil 13.8, Plt Count 218, MPV 9.4, Immature Gran % (Auto) 0.200, Neut % (Auto) 67.1, Lymph % (Auto) 16.8 L , [place] % (Auto) 10.5 H, Eos % (Auto) 4.7, Baso % (Auto) 0.7, Absolute Neuts (auto) 4.0, Absolute Lymphs (auto) 1.01, Nucleated RBC % 0, Sodium 142, P otassium 2.8 L, Chloride 110 H, Carbon Dioxide 23.0, Anion Gap 10, BUN 8, C reatinine 0.51 L, Estim Creat Clear Calc 112.56, Est GFR (MDRD) Af Amer 158, Est GFR (MDRD) Non-Af 130, BUN/Creatinine Ratio 15.6, Glucose 113 H, Calcium 8.8, Phosphorus 2.8, Magnesium 1.9 Micro: Microbiology 09/02/24 10:50 Blood Culture (Wb) - Arm Right Blood Culture - Preliminary No growth in 48 hours. 09/02/24 10:50 Blood Culture (Wb) - Left Hand Blood Culture - Preliminary No growth in 48 hours. 09/02/24 14:25 Sputum, Induced/Lukens Gram Stain - Final 09/02/24 14:25 Sputum, Induced/Lukens Respiratory Culture - Final Mixed normal respiratory bassam. No Streptococcus pneumoniae, beta-hemolytic Streptococcus or Staphylococcus aureus isolated. 09/02/24 09:06 Urine Catheter - Catheter Legionella Antigen - Final 09/02/24 09:06 Urine Catheter - Catheter Streptococcus pneumoniae Antigen (M - Final 09/02/24 08:55 Mucosa - Nose SARS-CoV-2, Influenza & RSV (PCR) - Final Rhythm Strip Rhythm Strip: Sinus Rhythm Rate: 88 Ectopy: None Physical Exam Const alert, no apparent distress and average body habitus; Negative for healthy appearing or well nourished Constitutional Narrative: Middle-aged, white female, lying in bed on ventilator, appears older than stated age, patient now wakes to stimuli and is able to intermittently follow commands HEENT normocephalic, head/scalp atraumatic and moist oral mucous membranes HEENT Narrative: ET tube and OG in place Neck supple Neck Narrative: Trachea midline Resp normal respiratory effort, no retractions, no use of accessory muscles and clear to auscultation bilaterally Resp Narrative: Diminished but clear Auscultation: Negative for rales, rhonchi or wheezes Cardio regular rate, regular rhythm, S1 normal heart sound, S2 normal heart sound, no murmurs, no rub, no gallops and no clicks GI normal to inspection, nondistended, normoactive bowel sounds, soft to palpation and non-tender GI Narrative: Abdomen is scaphoid Extremity no clubbing, cyanosis or edema Extremity Narrative: Pedal pulses are 1+ bilaterally, radial pulses are 2+ bilaterally Neuro Neuro Narrative: Awakens to gentle tactile stimulus and intermittently follows commands Sensorium / Orientation: awake and alert Speech: Negative for speech normal Psych Psych Narrative: Mild agitation while awake Assessment & Plan Assessment/Plan (1) Sepsis: (2) Acute hypoxemic respiratory failure: (3) Acidosis, lactic: (4) Anemia: (5) Toxic encephalopathy: (6) Hypokalemia: (7) Aspiration pneumonia: PLAN: Plan Sepsis secondary to suspected aspiration pneumonia -Sputum cultures pending however suspect based on Gram stain is going to be positive with oral bassam and consistent with aspiration pneumonia -Continue antibiotics but based on sputum cultures we will transition to Unasyn day 4 of 7 -Finally sputum culture is normal oral bassam -Blood cultures are negative at 48 hours -ICU medicine is following Acute hypoxic respiratory failure -Patient with mild hypoxemia and intubated predominantly for altered mental status and airway protection -Intubated on 09/02/2024 -Continue mechanical ventilation with sedation vacations and weaning per protocol -Anticipate extubation today -Continue nebulizers as ordered -Pulmonary/critical care medicine is following Toxic/metabolic encephalopathy -Etiology is unclear but is clearing with time -Workup with imaging, EEG, and lab work have all been negative -Improving Hypokalemia -Recurrent -Will give a total of 80 mill equivalents p.o. potassium today down OG Acute anemia -Hemoglobin on presentation was 14.3 however patient did seem to be hemoconcentrated -Hemoglobin has stabilized and remains between 11 and 12 -Highly suspect 8.3 was a spurious result report outside lab -Repeat CBC in a.m. Anxiety/depression -It appears patient was previously on Xanax, Wellbutrin, and duloxetine -Will need to verify medication once able--> we have not yet been able to verify medications History of vitamin D deficiency -Patient previously has been on ergocalciferol -Await med reconciliation to be finalized Chronic pain -Hold home gabapentin -Hold home diclofenac Tobacco abuse -Recommend cessation -Once extubated the patient needs nicotine replacement placement will prescribe DVT prophylaxis -Will continue enoxaparin CODE STATUS -Full code but unverified Charges/Coding Visit Charges Inpatient E&M: 69503 Subs Hosp L2
[2024-09-05] MEDS: Pantoprazole Sodium 40 MG in 0.9% Normal Saline (100mL MB+) 100 ML 330 MG IV (11:01)
[2024-09-05] MEDS: Furosemide 40 MG/4 ML Vial IV (11:07)
[2024-09-05] MEDS: Enoxaparin 40 MG/0.4 ML Syringe SC (11:07)
[2024-09-05] MEDS: Ampicillin/Sulbactam 3 GM in 0.9% Normal Saline (100mL MB+) 100 ML IV ×2 (11:14→18:05)
[2024-09-05] MEDS: Ondansetron 4 MG/2 ML Vial IV (11:48)
[2024-09-05] MEDS: 0.9% Saline Lock 10 ML Syringe IV ×2 (14:17→20:18)
[2024-09-05] MEDS: LORazepam 2 MG/ML Syringe IV ×3 (14:17→19:10)
[2024-09-05] MEDS: Phenobarbital Sodium 130 MG/ML Vial 100 MG IV (19:34)
[2024-09-06] VITALS (19 sets, daily range): BP systolic 93–149; BP diastolic 48–89; PULSE 87–108; RESP 16–33; TEMP 36.2–37.6; O2SAT 84–105; BMI 23.8
[2024-09-06] MEDS: Ampicillin/Sulbactam 3 GM in 0.9% Normal Saline (100mL MB+) 100 ML IV ×5 (00:06→23:07)
[2024-09-06 02:22] LABS: Absolute Lymphocyte Count 1.18 X10^3/uL (0.83-4.51); Absolute Neutrophil Count 3.4 X10^3/uL (2.0-7.7); Basophil# 0.03 X10^3/uL; Basophil% 0.6 % (0-1); Eosinophil# 0.21 X10^3/uL; Eosinophils% 3.9 % (0-5); Hematocrit 33.5 % (37-47); Hemoglobin 11.6 g/dL (12.0-15.0); Lymphocyte # 1.18 X10^3/ul (0.83-4.51); Lymphocyte % 21.7 % (19-41); Mean Corp Hgb Conc 34.6 g/dL (32-36); Mean Corpuscular Hgb 32.2 pg (27.0-32.0); Mean Corpuscular Volume 93.1 fL (81-99); Mean Platelet Vol. 9.5 fl (6.2-12.0); Monocyte# 0.59 X10^3/uL; Monocyte% 10.9 % (0-10); NRBC Flagged by Analyzer 0 % (0-5); Neutrophil % 62.5 % (47-70); Platelet Count 273 K/mm3 (150-450); RBC Distribution Width CV 13.7 % (11.6-14.6); RBC Distribution Width SD 46.7 fl (35.1-43.9); White Blood Count 5.4 K/mm3 (4.4-11.0)
[2024-09-06 02:44] LABS: ALB/GLOB Ratio 0.6 RATIO (0.9-2.4); AST(SGOT) 47 U/L (15-37); Alanine Aminotransfer ALT/SGPT 27 U/L (13-56); Albumin, Serum 2.5 g/dL (3.2-5.0); Alkaline Phosphatase 71 U/L (45-117); Anion Gap 4 (5-15); BUN 7 mg/dL (7-18); BUN/Creat Ratio 11.7 RATIO (10-20); Chloride 107 mmol/L (98-107); EST Glomerular Filtration Rate 109 mL/min (>60); Est Glom Filt Rate - Afr Amer 132 mL/min (>60); Estimated Creatinine Clearance 95.68 ml/min; Glucose 91 mg/dL (74-106); Potassium 3.8 mmol/L (3.5-5.1); Protein, Total 6.5 g/dL (6.4-8.2); Sodium Level 141 mmol/L (136-145)
[2024-09-06] MEDS: LORazepam 2 MG/ML Syringe IV (02:46)
[2024-09-06] MEDS: Ondansetron 4 MG/2 ML Vial IV ×2 (02:47→11:22)
[2024-09-06] MEDS: 0.9% Saline Lock 10 ML Syringe IV (02:48)
--- NOTE | 2024-09-06 08:03 | PCM.PN.INT ---
Assessment & Plan Assessment/Plan (1) Sepsis: (2) Toxic encephalopathy: (3) Aspiration pneumonia: (4) Acute hypoxemic respiratory failure: PLAN: Plan RECOMMENDATIONS: 1. Wean supplemental oxygen to maintain saturations at or above 90%. 2. Dietary advancement per speech therapy. 3. Continue CIWA protocol with as needed Ativan. 4. Continue antibiotics to complete 7 days of therapy. 5. Continue appropriate DVT prophylaxis. 6. Encourage incentive spirometer use and mobilize patient as tolerated. 7. The patient is medically stable for transfer out of the intensive care unit. 8. Will sign off from a critical care perspective. Please call with any additional questions. IMPRESSIONS: 1. Acute hypoxemic respiratory failure Improved. Clinical concern for underlying aspiration pneumonia. With supportive care, including invasive mechanical ventilation and antimicrobial therapy, the patient was able to be successfully extubated on the morning of September 05. Once extubated, supplemental oxygen will be weaned to maintain saturations at or above 90%. Plan to encourage incentive spirometer use and mobilize patient as tolerated. Recommend continuing antibiotics to complete 7 days of therapy. Continue bronchodilator therapy, given history of tobacco dependency. 2. Sepsis secondary to suspected aspiration pneumonia The patient did receive supplemental IV fluid hydration and remains hemodynamically stable. Cultures have not demonstrated any growth to date. Once the patient is able to tolerate p.o. intake, antibiotics can be transitioned to Augmentin to complete 7 days of therapy. 3. Toxic/metabolic encephalopathy Unclear etiology. Most likely metabolic in etiology. The patient's MRI brain and EEG were unrevealing. TSH and ammonia level were normal. With supportive care, the patient's mental status has improved. 4. History of chronic pain syndrome/chronic tobacco and alcohol dependency/anxiety/depression Complicates care, management, recovery and prognosis. Given the patient's history of alcohol dependency, will continue CIWA protocol with as needed Ativan. Recommend further dietary advancement per speech therapy. This note was generated with Ind[employer]ative [employer] dictation software. It may contain incorrect words, spelling, and punctuation that were not noted in checking the note before signing. Subjective Subjective The patient was seen and examined at the bedside this morning. Events from the last 24 hours have been reviewed. The patient is currently afebrile, hemodynamically stable and maintaining appropriate oxygen saturations on 2 L/min via nasal cannula. The patient remains on CIWA protocol with as needed Ativan. The patient reported that she is hungry this morning and is requesting food. White blood cell count remains normal. Hemoglobin and platelet count are stable. Creatinine remains within normal limits. Objective Data Objective Data The patient's most recent lab work, culture data and imaging studies have all been personally reviewed. COVID, influenza and RSV PCR's were negative. Strep and urine Legionella antigens were negative. Blood and sputum cultures have not demonstrated any growth to date. Vital Signs: Vital Signs Temp Pulse Resp BP Pulse Ox O2 Del Method O2 Flow Rate 99 F 92 32 H 118/66 92 Nasal Cannula 2 09/06/24 07:00 09/06/24 07:00 09/06/24 07:00 09/06/24 07:00 09/06/24 07:00 09/06/24 07:00 09/06/24 07:00 FiO2 09/05/24 08:00 Oxygen Flow Rate (L/min) 2 Oxygen Delivery Method Nasal Cannula Weight: 147 lb 14.883 oz Body Mass Index (BMI) 23.8 Intake & Output: Intake and Output for Last 24 Hours 09/04/24 09/05/24 09/06/24 23:59 23:59 23:59 Intake Total 1623.92 / 1748.62 1812.73 / 1812.73 224 / 224 Output Total 1075 / 1175 4280 / 4390 350 / 350 Balance 548.92 / 573.62 -2467.27 / -2577.27 -126 / -126 Lab / Micro Data Attestation: I reviewed the patient's lab results. 09/06/24 02:10 09/06/24 02:10 Labs: Laboratory Results - last 24 hr 09/06/24 02:10: WBC 5.4, RBC 3.60 L, Hgb 11.6 L, Hct 33.5 L, MCV 93.1, MCH 32.2 H, MCHC 34.6, RDW Std Deviation 46.7 H, RDW Coeff of Neil 13.7, Plt Count 273, MPV 9.5, Immature Gran % (Auto) 0.400, Neut % (Auto) 62.5, Lymph % (Auto) 21.7, [place] % (Auto) 10.9 H, Eos % (Auto) 3.9, Baso % (Auto) 0.6, Absolute Neuts (auto) 3.4, Absolute Lymphs (auto) 1.18, Nucleated RBC % 0, Sodium 141, Potassium 3.8, Chloride 107, Carbon Dioxide 30.0, Anion Gap 4 L, BUN 7, Creatinine 0.60, Estim Creat Clear Calc 95.68, Est GFR (MDRD) Af Amer 132, Est GFR (MDRD) Non-Af 109, BUN/Creatinine Ratio 11.7, Glucose 91, Calcium 9.0, Total Bilirubin 0.30, AST 47 H, ALT 27, Alkaline Phosphatase 71, Total Protein 6.5, Albumin 2.5 L, Globulin 4.0, Albumin/Globulin Ratio 0.6 L Micro: Microbiology 09/02/24 10:50 Blood Culture (Wb) - Arm Right Blood Culture - Preliminary No growth in 48 hours. 09/02/24 10:50 Blood Culture (Wb) - Left Hand Blood Culture - Preliminary No growth in 48 hours. 09/02/24 14:25 Sputum, Induced/Lukens Gram Stain - Final 09/02/24 14:25 Sputum, Induced/Lukens Respiratory Culture - Final Mixed normal respiratory bassam. No Streptococcus pneumoniae, beta-hemolytic Streptococcus or Staphylococcus aureus isolated. 09/02/24 09:06 Urine Catheter - Catheter Legionella Antigen - Final 09/02/24 09:06 Urine Catheter - Catheter Streptococcus pneumoniae Antigen (M - Final 09/02/24 08:55 Mucosa - Nose SARS-CoV-2, Influenza & RSV (PCR) - Final ABG Data ABG results: ABG 09/03/24 08:30 Specimen Type ART Sample Site R Brach pH 7.37 Bicarbonate Actual 23.6 Total CO2 25 Base Excess -2 O2 Saturation 90 L O2 % 30.0 ABG pCO2 41.3 ABG pO2 60 L Respiration Rate 14 O2 Delivery Device Adult Vent Vent Mode AC Tidal Volume 450.0 POC PEEP 5 Radiography Diagnostic Testing: Radiology Impression Brain MRI 09/03/24 08:25 IMPRESSION: 1. Involutional and mild chronic ischemic changes of the brain, as described above. 2. No acute infarct or intracranial hemorrhage 3. No hydrocephalus or midline shift is present. There is no evidence of hypoxic ischemic encephalopathy or acute metabolic toxic encephalopathy by MR criteria. Electronically Signed: Stewart Riddle MD at 15:23 EST , KUB X-Ray 09/03/24 09:30 IMPRESSION: No radiopaque foreign bodies seen. Electronically Signed: Pedro Messer MD at 9:52 EST , Rhythm Strip Rhythm Strip: Sinus Rhythm Rate: 88 Ectopy: None Physical Exam Const alert and no apparent distress HEENT normocephalic, head/scalp atraumatic and moist oral mucous membranes Eyes EOMs intact bilaterally and conjunctivae normal Neck supple General: trachea midline Chest inspection of chest normal Resp normal respiratory effort Auscultation: diminished lung sounds; Negative for rales, rhonchi or wheezes Cardio regular rate and regular rhythm GI normal to inspection, nondistended, normoactive bowel sounds Extremity no clubbing, cyanosis or edema Skin no rashes or lesions noted Neuro CN's II-XII intact bilaterally, moves all extremities and no focal motor deficits Psych Activity / Motor Behavior: restless Mood & Affect: anxious Charges/Coding Visit Charges Inpatient E&M: 79861 Subs Hosp L2
--- NOTE | 2024-09-06 08:18 | PN.HOSP_ITS ---
Reason for Visit Reason for Visit: Unresponsiveness Subjective Subjective Some intermittent agitation overnight required 1 dose of Ativan at about 2:30 AM. Phenobarb was effective. No issues this morning. Patient is somewhat somnolent but per nursing she was more awake before. Still with delirium, hallucinations, and agitation intermittently. Objective Data Objective Data Vital Signs: Vital Signs Temp Pulse Resp BP Pulse Ox O2 Del Method O2 Flow Rate 99 F 92 32 H 118/66 92 Nasal Cannula 2 09/06/24 07:00 09/06/24 07:00 09/06/24 07:00 09/06/24 07:00 09/06/24 07:00 09/06/24 07:00 09/06/24 07:00 FiO2 25 09/05/24 08:00 Oxygen Flow Rate (L/min) 2 Oxygen Delivery Method Nasal Cannula Weight: 67.1 kg Body Mass Index (BMI) 23.8 Intake & Output: Intake and Output for Last 24 Hours 09/04/24 09/05/24 09/06/24 23:59 23:59 23:59 Intake Total 1623.92 / 1748.62 1812.73 / 1812.73 224 / 224 Output Total 1075 / 1175 4280 / 4390 350 / 350 Balance 548.92 / 573.62 -2467.27 / -2577.27 -126 / -126 Lab / Micro Data 09/06/24 02:10 09/06/24 02:10 Labs: Laboratory Results - last 24 hr 09/06/24 02:10: WBC 5.4, RBC 3.60 L, Hgb 11.6 L, Hct 33.5 L, MCV 93.1, MCH 32.2 H, MCHC 34.6, RDW Std Deviation 46.7 H, RDW Coeff of Neil 13.7, Plt Count 273, MPV 9.5, Immature Gran % (Auto) 0.400, Neut % (Auto) 62.5, Lymph % (Auto) 21.7, [place] % (Auto) 10.9 H, Eos % (Auto) 3.9, Baso % (Auto) 0.6, Absolute Neuts (auto) 3.4, Absolute Lymphs (auto) 1.18, Nucleated RBC % 0, Sodium 141, Potassium 3.8, Chloride 107, Carbon Dioxide 30.0, Anion Gap 4 L, BUN 7, Creatinine 0.60, Estim Creat Clear Calc 95.68, Est GFR (MDRD) Af Amer 132, Est GFR (MDRD) Non-Af 109, BUN/Creatinine Ratio 11.7, Glucose 91, Calcium 9.0, Total Bilirubin 0.30, AST 47 H, ALT 27, Alkaline Phosphatase 71, Total Protein 6.5, Albumin 2.5 L, Globulin 4.0, Albumin/Globulin Ratio 0.6 L Micro: Microbiology 09/02/24 10:50 Blood Culture (Wb) - Arm Right Blood Culture - Preliminary No growth in 48 hours. 09/02/24 10:50 Blood Culture (Wb) - Left Hand Blood Culture - Preliminary No growth in 48 hours. 09/02/24 14:25 Sputum, Induced/Lukens Gram Stain - Final 09/02/24 14:25 Sputum, Induced/Lukens Respiratory Culture - Final Mixed normal respiratory bassam. No Streptococcus pneumoniae, beta-hemolytic Streptococcus or Staphylococcus aureus isolated. 09/02/24 09:06 Urine Catheter - Catheter Legionella Antigen - Final 09/02/24 09:06 Urine Catheter - Catheter Streptococcus pneumoniae Antigen (M - Final 09/02/24 08:55 Mucosa - Nose SARS-CoV-2, Influenza & RSV (PCR) - Final Rhythm Strip Rhythm Strip: Sinus Rhythm Rate: 88 Ectopy: None Physical Exam Const alert, no apparent distress and average body habitus; Negative for healthy appearing or well nourished Constitutional Narrative: Middle-aged, white female, sitting up in bed, sleepy, oriented only to self, appears older than stated age, intermittent agitation and delirium Orientation / Consciousness: confused and disoriented HEENT normocephalic and head/scalp atraumatic Resp normal respiratory effort, no retractions, no use of accessory muscles and clear to auscultation bilaterally Resp Narrative: Few scattered end expiratory wheezes Auscultation: wheezes; Negative for rales or rhonchi Cardio regular rate, regular rhythm, S1 normal heart sound, S2 normal heart sound, no murmurs, no rub, no gallops and no clicks GI normal to inspection, nondistended, normoactive bowel sounds, soft to palpation and non-tender GI Narrative: Abdomen is scaphoid Extremity no clubbing, cyanosis or edema Extremity Narrative: Pedal pulses are 1+ bilaterally, radial pulses are 2+ bilaterally Neuro Neuro Narrative: Relatively sleepy but does respond to name oriented to self but not birthday Sensorium / Orientation: oriented to person; Negative for oriented to place or oriented to time Speech: Negative for speech normal Psych Psych Narrative: Somnolent today currently, but does have periods of agitation and hallucination Assessment & Plan Assessment/Plan (1) Sepsis: (2) Acute hypoxemic respiratory failure: (3) Acidosis, lactic: (4) Anemia: (5) Toxic encephalopathy: (6) Hypokalemia: (7) Aspiration pneumonia: PLAN: Plan Acute alcohol withdrawal/DTs -Family indicated patient drinks quite a bit at home -Continue as needed Ativan with CIWA -Add phenobarbital taper -Add thiamine and folate -Add supportive medications for withdrawal symptoms -Will consider 180 consultation if patient willing when she is more responsive and appropriate Sepsis secondary to suspected aspiration pneumonia -Sputum cultures pending however suspect based on Gram stain is going to be positive with oral bassam and consistent with aspiration pneumonia -Continue antibiotics but based on sputum cultures we will transition to Unasyn day 5 of 7 -Finally sputum culture is normal oral bassam -Blood cultures are negative -Will transfer to [facility] Acute hypoxic respiratory failure -Patient with mild hypoxemia and intubated predominantly for altered mental status and airway protection -Intubated on 09/02/2024/extubated 09/05/2024 -Patient still requiring 2 L nasal cannula with sats at 96% -Continue nebulizers as ordered -Pulmonary/critical care medicine is following Dysphagia -Likely mostly facilitated by her altered mental status -speech therapy is following and patient does have a p.o. diet ordered that is modified Toxic/metabolic encephalopathy -Etiology is unclear but is clearing with time -Workup with imaging, EEG, and lab work have all been negative -Now worsened as she appears to be going through acute alcohol withdrawal Hypokalemia -Resolved Acute anemia -Hemoglobin on presentation was 14.3 however patient did seem to be hemoconcentrated -Hemoglobin has stabilized and remains between 11 and 12 -Repeat CBC in a.m. Anxiety/depression -It appears patient was previously on Xanax, Wellbutrin, and duloxetine -Will need to verify medication once able--> we have not yet been able to verify medications History of vitamin D deficiency -Patient previously has been on ergocalciferol -Await med reconciliation to be finalized Chronic pain -Hold home gabapentin -Hold home diclofenac Tobacco abuse -Recommend cessation -Once extubated the patient needs nicotine replacement placement will prescribe DVT prophylaxis -Will continue enoxaparin CODE STATUS -Full code but unverified Charges/Coding Visit Charges Inpatient E&M: 32090 Subs Hosp L2
[2024-09-06] MEDS: Enoxaparin 40 MG/0.4 ML Syringe SC (10:16)
[2024-09-06] MEDS: CHLORHEXIDINE GLUC 2% CLOTH 1 EACH TOWELETTE TOPICAL (10:16)
[2024-09-06] MEDS: Pantoprazole Sodium 40 MG in 0.9% Normal Saline (100mL MB+) 100 ML 330 MG IV (10:19)
[2024-09-06] MEDS: Phenobarbital 32.4 MG Tablet 64.8 MG PO ×4 (11:15→23:07)
[2024-09-06] MEDS: Ipratropium/Albuterol Sulfate 3 ML AMPUL.NEB INHALATION ×4 (11:35→22:54)
[2024-09-07] VITALS (11 sets, daily range): BP systolic 126–153; BP diastolic 66–86; PULSE 78–102; RESP 15–24; TEMP 36.3–37.3; O2SAT 94–98; BMI 22.4
[2024-09-07] MEDS: Ipratropium/Albuterol Sulfate 3 ML AMPUL.NEB INHALATION ×6 (02:30→23:42)
[2024-09-07] MEDS: Phenobarbital 32.4 MG Tablet 64.8 MG PO ×6 (02:46→22:08)
[2024-09-07] MEDS: Ampicillin/Sulbactam 3 GM in 0.9% Normal Saline (100mL MB+) 100 ML IV ×4 (06:19→23:23)
[2024-09-07 06:57] LABS: Hematocrit 33.9 % (37-47); Hemoglobin 11.7 g/dL (12.0-15.0); Mean Corp Hgb Conc 34.5 g/dL (32-36); Mean Corpuscular Hgb 32.1 pg (27.0-32.0); Mean Corpuscular Volume 93.1 fL (81-99); Mean Platelet Vol. 9.2 fl (6.2-12.0); Platelet Count 329 K/mm3 (150-450); RBC Distribution Width CV 13.5 % (11.6-14.6); RBC Distribution Width SD 46.5 fl (35.1-43.9); Red Blood Count 3.64 M/mm3 (4.2-5.4); White Blood Count 7.2 K/mm3 (4.4-11.0)
[2024-09-07 07:29] LABS: Anion Gap 7 (5-15); BUN 4 mg/dL (7-18); BUN/Creat Ratio 6.9 RATIO (10-20); Calcium,Total 9.1 mg/dL (8.5-10.1); Chloride 105 mmol/L (98-107); Creatinine, Serum 0.58 mg/dL (0.55-1.02); EST Glomerular Filtration Rate 113 mL/min (>60); Est Glom Filt Rate - Afr Amer 137 mL/min (>60); Estimated Creatinine Clearance 98.98 ml/min; Glucose 119 mg/dL (74-106); Magnesium 1.9 mg/dL (1.6-2.6); Phosphorus 3.5 mg/dL (2.5-4.9); Potassium 3.3 mmol/L (3.5-5.1); Sodium Level 139 mmol/L (136-145)
[2024-09-07] MEDS: Folic Acid 1 MG Tablet PO (09:46)
[2024-09-07] MEDS: Enoxaparin 40 MG/0.4 ML Syringe SC (09:47)
[2024-09-07] MEDS: Potassium Chloride Oral Tablet 20 MEQ 60 MEQ PO (09:47)
[2024-09-07] MEDS: Thiamine Hydrochloride 100 MG Tablet PO (09:47)
[2024-09-07] MEDS: Gabapentin 300 MG Capsule PO (09:49)
[2024-09-07] MEDS: hydrOXYzine PAM 25 MG Capsule 50 MG PO (09:49)
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
[2024-09-07] MEDS: Pantoprazole Sodium 40 MG in 0.9% Normal Saline (100mL MB+) 100 ML 330 MG IV (11:02)
--- NOTE | 2024-09-07 13:00 | CASEMGMT ---
ST states to MELVA that ST is recommending OP GI follow up. SW notifies this RN CM. This RN CM notified Dr. Montalvo at this time.
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
--- NOTE | 2024-09-07 16:31 | PN.HOSP_ITS ---
Reason for Visit Reason for Visit: Unresponsiveness Subjective Subjective Patient still with impulsivity and intermittent agitation. Unclear if this is her baseline or if she still altered. She is definitely more awake and able to interact and answer questions. She is able to tell you fax the gets argumentative easily. Objective Data Objective Data Vital Signs: Vital Signs Temp Pulse Resp BP Pulse Ox O2 Del Method O2 Flow Rate 97.8 F 97 20 H 151/74 H 98 Nasal Cannula 1 09/07/24 08:00 09/07/24 08:00 09/07/24 15:46 09/07/24 08:00 09/07/24 08:00 09/07/24 08:00 09/07/24 08:00 FiO2 25 09/05/24 08:00 Oxygen Flow Rate (L/min) 1 Oxygen Delivery Method Nasal Cannula Weight: 63.4 kg Body Mass Index (BMI) 22.4 Intake & Output: Intake and Output for Last 24 Hours 09/05/24 09/06/24 09/07/24 23:59 23:59 23:59 Intake Total 1812.73 / 1812.73 730 / 730 454 / 454 Output Total 4280 / 4390 550 / 850 690 / 690 Balance -2467.27 / -2577.27 180 / -120 -236 / -236 Lab / Micro Data 09/07/24 06:24 09/07/24 06:24 Labs: Laboratory Results - last 24 hr 09/07/24 06:24: WBC 7.2, RBC 3.64 L, Hgb 11.7 L, Hct 33.9 L, MCV 93.1, MCH 32.1 H, MCHC 34.5, RDW Std Deviation 46.5 H, RDW Coeff of Neil 13.5, Plt Count 329, MPV 9.2, Sodium 139, Potassium 3.3 L, Chloride 105, Carbon Dioxide 27.0, Anion Gap 7, BUN 4 L, Creatinine 0.58, Estim Creat Clear Calc 98.98, Est GFR (MDRD) Af Amer 137, Est GFR (MDRD) Non-Af 113, BUN/Creatinine Ratio 6.9 L, Glucose 119 H, Calcium 9.1, Phosphorus 3.5, Magnesium 1.9 Micro: Microbiology 09/02/24 10:50 Blood Culture (Wb) - Left Hand Blood Culture - Final No growth in 5 days. 09/02/24 10:50 Blood Culture (Wb) - Arm Right Blood Culture - Final No growth in 5 days. 09/02/24 14:25 Sputum, Induced/Lukens Gram Stain - Final 09/02/24 14:25 Sputum, Induced/Lukens Respiratory Culture - Final Mixed normal respiratory bassam. No Streptococcus pneumoniae, beta-hemolytic Streptococcus or Staphylococcus aureus isolated. 09/02/24 09:06 Urine Catheter - Catheter Legionella Antigen - Final 09/02/24 09:06 Urine Catheter - Catheter Streptococcus pneumoniae Antigen (M - Final 09/02/24 08:55 Mucosa - Nose SARS-CoV-2, Influenza & RSV (PCR) - Final Rhythm Strip Rhythm Strip: Sinus Rhythm Rate: 88 Ectopy: None Physical Exam Const alert, no apparent distress and average body habitus; Negative for healthy appearing or well nourished Constitutional Narrative: Middle-aged, white female, sitting up in bed, awake and leaning over the edge of her bed trying to pickle cutter her phone off the floor. She is down to Coke all over the floor. She is somewhat argumentative but able to tell me her name and date of and where she is. She refused answer any other questions. Unclear if she still a bit confused or just noncompliant HEENT normocephalic, head/scalp atraumatic and moist oral mucous membranes HEENT Narrative: Mallampati 2, no thrush Neck Neck Narrative: Trachea midline Resp normal respiratory effort, no retractions, no use of accessory muscles and clear to auscultation bilaterally Resp Narrative: Diminished but clear Auscultation: Negative for rales, rhonchi or wheezes Cardio regular rate, regular rhythm, S1 normal heart sound, S2 normal heart sound, no murmurs, no rub, no gallops and no clicks GI normal to inspection, nondistended, normoactive bowel sounds, soft to palpation and non-tender GI Narrative: Abdomen is scaphoid Extremity no clubbing, cyanosis or edema Extremity Narrative: Pedal pulses are 1+ bilaterally, radial pulses are 2+ bilaterally, decreased lean muscle mass Neuro moves all extremities and no focal motor deficits Neuro Narrative: Awake and interactive now, follows commands but somewhat argumentative Sensorium / Orientation: awake, alert, oriented to person and oriented to place; Negative for oriented to time Speech: Negative for speech normal Psych Psych Narrative: Less somnolent but agitation is still present unclear if this is baseline, patient appears to be quite impulsive Assessment & Plan Assessment/Plan (1) Sepsis: (2) Acute hypoxemic respiratory failure: (3) Acidosis, lactic: (4) Anemia: (5) Toxic encephalopathy: (6) Hypokalemia: (7) Aspiration pneumonia: PLAN: Plan Acute alcohol withdrawal/DTs -Family indicated patient drinks quite a bit at home -Continue as needed Ativan with CIWA -Continue phenobarbital taper -Continue thiamine and folate -Continue supportive medications for withdrawal symptoms -It does not appear the patient is willing to consider sobriety at discharge Sepsis secondary to suspected aspiration pneumonia -Sputum cultures pending however suspect based on Gram stain is going to be positive with oral bassam and consistent with aspiration pneumonia -Continue antibiotics but based on sputum cultures we will transition to Unasyn day 6 of 7 -Finally sputum culture is normal oral bassam -Blood cultures are negative -Will transfer to [facility] Acute hypoxic respiratory failure -Patient with mild hypoxemia and intubated predominantly for altered mental status and airway protection -Intubated on 09/02/2024/extubated 09/05/2024 -Patient now down to 1 L nasal cannula sats at 98% -Continue to wean -Continue nebulizers as ordered -Antibiotics as above Dysphagia -Likely mostly facilitated by her altered mental status -speech therapy is following and patient does have a p.o. diet ordered that is modified Toxic/metabolic encephalopathy -Definitely closer to baseline Hypokalemia -3.3 today -P.o. potassium given -Recheck in a.m. Acute anemia -Hemoglobin on presentation was 14.3 however patient did seem to be hemoconcentrated -Hemoglobin has stabilized and remains between 11 and 12 -Repeat CBC in a.m. Anxiety/depression -It appears patient was previously on Xanax, Wellbutrin, and duloxetine -Will need to verify medication once able--> still not able to verify home medications History of vitamin D deficiency -Patient previously has been on ergocalciferol -Await med reconciliation to be finalized Chronic pain -Hold home gabapentin -Hold home diclofenac Tobacco abuse -Recommend cessation -Once extubated the patient needs nicotine replacement placement will prescribe DVT prophylaxis -Will continue enoxaparin CODE STATUS -Full code but unverified Charges/Coding Visit Charges Inpatient E&M: 19701 Subs Hosp L2
[2024-09-08] MEDS: Phenobarbital 32.4 MG Tablet 64.8 MG PO ×4 (03:21→15:34)
[2024-09-08 03:24] VITALS: BP 131/74; PULSE 103; RESP 14; TEMP 36.8; O2SAT 96
[2024-09-08 06:00] VITALS: BMI 21.7
[2024-09-08 06:08] LABS: Anion Gap 7 (5-15); BUN 4 mg/dL (7-18); BUN/Creat Ratio 6.6 RATIO (10-20); Chloride 106 mmol/L (98-107); Creatinine, Serum 0.61 mg/dL (0.55-1.02); EST Glomerular Filtration Rate 107 mL/min (>60); Est Glom Filt Rate - Afr Amer 130 mL/min (>60); Estimated Creatinine Clearance 94.11 ml/min; Glucose 101 mg/dL (74-106); Potassium 3.7 mmol/L (3.5-5.1); Sodium Level 139 mmol/L (136-145)
[2024-09-08] MEDS: Ampicillin/Sulbactam 3 GM in 0.9% Normal Saline (100mL MB+) 100 ML IV ×2 (06:11→12:14)
[2024-09-08] MEDS: Pantoprazole Sodium 40 MG in 0.9% Normal Saline (100mL MB+) 100 ML 330 MG IV (09:19)
[2024-09-08] MEDS: Folic Acid 1 MG Tablet PO (09:19)
[2024-09-08] MEDS: Thiamine Hydrochloride 100 MG Tablet PO (09:19)
[2024-09-08] MEDS: Enoxaparin 40 MG/0.4 ML Syringe SC (09:19)
[2024-09-08 09:30] VITALS: BP 143/98; PULSE 113; RESP 16; TEMP 36.7; O2SAT 93
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
--- NOTE | 2024-09-08 10:45 | NURSING ---
Patient made aware of suicide precautions. She stated I will not tolerate having someone watching me, if I was going to kill myself here I would just be saved. I will Fok walk out of here if someone sits in here. MELVA Lozano made aware and Dr. Montalvo coming to pink slip
--- NOTE | 2024-09-08 10:48 | CASEMGMT ---
Social Work SW spoke w/RN and physician, pt informed RN she had tried to commit suicide prior to this hospital stay. Physician put pt in suicide precautions, SW called crisis and sent clinical information to crisis. forest nursery worker is here now to assess pt. JUSTINE Real
--- NOTE | 2024-09-08 10:53 | NURSING ---
crisis in room at this time
--- NOTE | 2024-09-08 11:35 | NURSING ---
patient throwing food across the room, yelling and slamming cabinet doors. Staff at bedside, called, yoni brought back into room which is helping calm patient. Security talked with patient and is more calm at this time.
--- NOTE | 2024-09-08 11:53 | PCM.HOSP.N ---
Hospitalist Note Patient is medically stable for discharge. Patient did report suicidal ideation and suicide attempt to nursing staff today with regards to her admission. Crisis was called and are evaluating. If patient needs placement per crisis she is medically stable to go.
[2024-09-08] MEDS: Albuterol 2.5 MG/3 ML VIAL.NEB. INHALATION (12:30)
[2024-09-08 12:31] VITALS: PULSE 99; RESP 18; O2SAT 99
--- NOTE | 2024-09-08 13:21 | CASEMGMT ---
Social Work SW and and ICU have received multiple calls from [facility] and [facility]. Pt accepted both places. SW spoke w/Clive from crisis, we will send pt to [facility]. Dr. Mendoza is accepting physician. MELVA let Maud Se know pt going elsewhere. SW faxed progress note and pink slip to [facility] per [facility]'s request. SW let physician know, she will discharge pt. ICU will set up transport, [facility] is to call RN for a nurse to nurse to the ICU. No further needs, pt to [facility] today. JUSTINE Real
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
[2024-09-08 13:28] VITALS: BP 131/80; PULSE 93
[2024-09-08 13:31] VITALS: BP 131/80; PULSE 93; RESP 23
[2024-09-08 15:34] VITALS: BP 135/63; PULSE 97; RESP 18; TEMP 36.9; O2SAT 96
== END 2024-09-08 17:45 | DRG 720 ==
LOC: ED 10:18 → ICU 10:48
PROVIDERS: Emergency Provider Emergency Medicine; Visit Provider Internal Medicine
DX: A41.9 Sepsis, unspecified organism (principal); J96.01 Acute respiratory failure with hypoxia; F10.231 Alcohol dependence with withdrawal delirium; G92.9 Unspecified toxic encephalopathy; R13.10 Dysphagia, unspecified; G93.41 Metabolic encephalopathy; J69.0 Pneumonitis due to inhalation of food and vomit; E87.20 Acidosis, unspecified; D64.9 Anemia, unspecified; F32.A Depression, unspecified; T14.91XA Suicide attempt, initial encounter; F17.210 Nicotine dependence, cigarettes, uncomplicated; E87.6 Hypokalemia; F41.9 Anxiety disorder, unspecified; E53.8 Deficiency of other specified B group vitamins; G89.4 Chronic pain syndrome; Z79.899 Other long term (current) drug therapy; R00.0 Tachycardia, unspecified; R45.1 Restlessness and agitation
CPT/HCPCS: 31500; 31720; 36415; 36600; 51702; 70450; 70553; 71045; 74018; 74230; 80048; 80053; 80307; 81001; 82077; 82140; 82550; 82728; 82803; 82962; 83540; 83550; 83605; 83690; 83735; 84100; 84443; 84478; 84484; 85018; 85025; 85027; 85045; 85610; 85730; 87040; 87070; 87205; 87449; 87631; 92526; 92610; 92611; 93005; 94002; 94003; 94640; 94660; 94668; 94762; 95819; 97116; 97162; 97166; 97530; 97535; 97803; 99252; 99285; A9575; A4216; G0463; J0295; J1940; J2310; J2405